=== PATIENT | female | born 1940 | race Caucasian/White ===

== ENCOUNTER → 2019-07-26 | Outpatient (CLI) | payer OTHER, MEDICARE ==
[~2019-07-26] MED LIST: ASA81BEC PO; CLONIDINE HCL0.2 M2 PO; LOPRESSOR50 MG PO; PAXIL40 MG PO; PRIMIDONE50 MG PO; ULTRAM50 MG PO; XANAX1 MG PO; ZANAFLEX4 M2 PO; ZESTRIL40 MG PO
--- NOTE | 2019-07-26 12:45 | 2DMMODE ---
[facility] [place] [place] [address] 2 D/M-MODE ECHOCARDIOGRAM Name: JOSE A SURESH Room #: REG [facility]#: [id number] Admission: 07/26/19 Attend Phys: Navid Hernandez Discharge: Date of : 40 Report #: [id number] THIS REPORT FOR: //name// APPROVED REPORT Study performed: 07/26/2019 11:11:18 EXAM: Comprehensive 2D, Doppler, and color-flow Echocardiogram Patient Location: Out-Patient Status: routine BSA: 1.77 HR: 74 bpm BP: 140/86 mmHg Rhythm: NSR Other Information Study Quality: Adequate/COPD Indications Hypertension, COPD. 2D Dimensions RVDd: 30.77 mm IVSd: 12.11 (7-11mm) LVOT Diam: 20.33 (18-24mm) LVDd: 43.39 mm PWd: 12.00 (7-11mm) LVDs: 30.20 (25-40mm) Aortic Root: 34.70 mm Volumes Left Atrial Volume (Systole) Single Plane 4CH: 57.25 mL Single Plane 2CH: 60.70 mL LA ESV Index: 35.00 mL/m2 Aortic Valve AoV Peak Tylor.: 1.43 m/s AO Peak Gr.: 8.22 mmHg LVOT Max P.79 mmHg LVOT Max V: 0.97 m/s LAURENT Vmax: 2.20 cm2 Mitral Valve E/A Ratio: 0.8 MV Decel. Time: 196.95 ms MV E Max Tylor.: 0.88 m/s [facility] [address] [place] [address] 2 D/M-MODE ECHOCARDIOGRAM Name: JOSE A SURESH Room #: REG [facility]#: [id number] Admission: 07/26/19 Attend Phys: Navid Hernandez Discharge: Date of : 40 Report #: [id number] MV A Tylor.: 1.07 m/s MV PHT: 57.11 ms IVRT: 110.73 ms Pulmonary Valve PV Peak Tylor.: 1.13 m/s PV Peak Gr.: 5.09 mmHg Tricuspid Valve TR Peak Tylor.: 2.71 m/s RAP Estimate: 10.00 mmHg TR Peak Gr.: 29.46 mmHg PA Pressure: 39.00 mmHg Left Ventricle The left ventricle is normal size. There is normal LV segmental wall motion. Mild concentric left ventricular hypertrophy. Left ventricular systolic function is normal. LVEF is 55-60%. Mild diastolic dysfunction is present (impaired relaxation pattern). Right Ventricle The right ventricle is normal size. The right ventricular systolic function is normal. Atria Left atrium is mildly dilated. The right atrium size is normal. Aortic Valve The aortic valve is normal in structure. No aortic regurgitation is present. There is no aortic valvular stenosis. Mitral Valve The mitral valve is normal in structure. Moderate to severe mitral regurgitation Tricuspid Valve The tricuspid valve is normal in structure. Trace to mild tricuspid regurgitation. Estimated PAP is 35-40mmHg. Pulmonic Valve Pulmonic valve leaflets are thickened. Trace pulmonic regurgitation. Great Vessels The aortic root is normal in size. Ascending aorta is not well visualized. IVC is dilated and collapses >50% with [facility] [address] [place] [address] 2 D/M-MODE ECHOCARDIOGRAM Name: JOSE A SURESH Room #: [facility]#: [id number] Admission: 07/26/19 Attend Phys: Navid Hernandez Discharge: Date of : 40 Report #: [id number]. Pericardium There is no pericardial effusion. <Conclusion> The left ventricle is normal size. LVEF is 55-60%. Left atrium is mildly dilated. The aortic valve is normal in structure. The mitral valve is normal in structure. Moderate to severe mitral regurgitation The tricuspid valve is normal in structure. Trace to mild tricuspid regurgitation. Estimated PAP is 35-40mmHg. Pulmonic valve leaflets are thickened. Trace pulmonic regurgitation. There is no pericardial effusion. <ELECTRONICALLY SIGNED> By: Navid Dueñas MD 07/26/19 1244 1244 1244 Navid Dueñas MD /INF
== END ==
LOC: CV 07-10 12:03
DX: I08.1 Rheumatic disorders of both mitral and tricuspid valves (principal); I11.9 Hypertensive heart disease without heart failure; J44.9 Chronic obstructive pulmonary disease, unspecified; E78.5 Hyperlipidemia, unspecified; Z79.899 Other long term (current) drug therapy; Z87.891 Personal history of nicotine dependence

== ENCOUNTER → 2019-08-07 | Outpatient (CLI) | payer OTHER, MEDICARE | LOC: SJCVC 13:52 | DX: R06.09 Other forms of dyspnea (principal); R94.39 Abnormal result of other cardiovascular function study; I10 Essential (primary) hypertension; E78.5 Hyperlipidemia, unspecified; J44.9 Chronic obstructive pulmonary disease, unspecified; Z79.82 Long term (current) use of aspirin; Z79.899 Other long term (current) drug therapy; Z82.49 Family history of ischemic heart disease and other diseases of the circulatory system; Z87.891 Personal history of nicotine dependence ==

== ENCOUNTER → 2019-08-14 | Outpatient (CLI) | payer OTHER, MEDICARE ==
[~2019-08-14] VITALS: Ht 165.1 cm; Wt 70.3 kg
[2019-08-14 10:54] LABS: ABSOLUTE NEUTROPHILS 3.9 thou/uL (1.4-8.2); BASOPHILS 0.9 % (0.0-2.0); EOSINOPHILS 1.6 % (0.0-3.0); HEMATOCRIT 46.8 % (37.0-47.0); HEMOGLOBIN 15.6 gm/dL (12.0-15.0); LYMPHOCYTES 26.9 % (24.0-44.0); MCH 34.5 pg (26.0-34.0); MCHC 33.4 g/dL (28.0-37.0); MCV 103.4 fL (80.0-100.0); MONOCYTES 6.4 % (1.0-8.0); PLATELET COUNT 229 thou/uL (150-400); POLYS 64.2 % (36.0-66.0); RBC 4.52 mil/uL (4.20-5.00); RDW 14.1 % (10.5-14.5); WBC 6.1 thou/uL (4.0-11.0)
[2019-08-14 11:03] LABS: CALCIUM 9.8 mg/dL (8.5-10.1); CREATININE 0.7 mg/dL (0.6-1.0); POTASSIUM 3.9 mmol/L (3.5-5.1)
[2019-08-14 11:07] VITALS: BP 145/78
--- NOTE | 2019-08-14 16:40 | EKG ---
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 GAMBLE : 1940 Requested By: Navdi Dueñas Order Number: [id number] MD: Zaid Marshall Measurements Intervals [place] Rate: 63 P: 78 ND: 210 QRS: 36 QRSD: 95 T: 26 QT: 424 QTc: 435 Interpretive Statements Sinus rhythm Abnormal inferior Q waves No previous ECG available for comparison Electronically Signed On 08-14-2019 16:39:33 ASSISTED LIVING HOUSEKEEPER by Zaid Marshall [email or web address] <ELECTRONICALLY SIGNED> By: Zaid Marshall MD, [facility] 08/14/19 1639 1131 30 Zaid Marshall MD, FAC /EPI
--- NOTE | 2019-08-21 11:20 | CATHLAB ---
[facility] [place] [address] INVASIVE PROCEDURE REPORT Name: JOSE A SURESH Room #: REG GALI [facility]#: [id number] Admission: 08/14/19 Attend Phys: Navid Dueñas Discharge: Date of : 40 Report #: [id number] THIS REPORT FOR: cc: Placido Zuleta Andrea RNP Lammoglia, Francisco J. MD ~ APPROVED REPORT Study performed: 08/14/2019 11:11:54 Patient Details Patient Status: Out-Patient Room #: The patient is a 78 year-old female Event Personnel Navid Dueñas Simulation Tech, Jaime Ross Trubic, Lauren RN RN, Nelly Montaño Monitor Procedures Performed Art Access - L femoral artery* Art Access - R femoral artery* 94676 Initial Mod Sed Same Phys/QHP Gr5y 079476 44816 Mod Sed Same Phys/QHP Ea 475104 Left Heart Cath w/or w/o Coronaries [id number] [facility] Hemostasis with Manual pressure,right iliacangiography, supervision of conscious sedation Indication Positive stress test, Chest pain Procedure Narrative The patient was brought electively to the Cardiac Catheterization Laboratory and was prepped and draped in a sterile manner. The Right Groin^ was infiltrated with 1% Lidocaine subcutaneous anesthesia. A PINNACLE 4FR Sheath #[id number] sheath was inserted into the LFA^. Coronary angiography was performed using coronary diagnostic catheters. The left coronary system was accessed and visualized with a JL 4 catheter. The left ventricle was accessed and visualized with a JR 4 catheter. Left ventricular/Aortic Valve gradient assessed via catheter pullback. Hemostasis was obtained with manual pressure following sheath removal without any complications. The patient tolerated the procedure well and there were no complications associated with the procedure. There was no hematoma. Intraoperative Conscious Sedation Sedation start time: 13:55 Case end Time: [facility] [place] [address] INVASIVE PROCEDURE REPORT Name: JOSE A SURESH [facility] #: [facility] [id number] Admission: 08/14/19 Attend Phys: Navid Hernandez Discharge: Date of : 40 Report #: [id number] 14:38 Versed 3 mg Fluoro Time: 6.60 minutes Dose: DAP 6756.00 cGycm2 1056 mGy Contrast Type and Amount: Omnipaque 60 ml Coronary Angiography The patient's coronary anatomy is right dominant. Diagnostic Cath Left Main moderate caliber vessel of normal origin with heavy calcifications noted on fluoroscopy bifurcates left anterior descending left circumflex has irregularities noted but no high-grade lesion LAD moderate caliber type II vessel with heavy calcification throughout its entire course. There is moderate lesions proximally but in its midportion is an eccentric heavily calcified lesion of at least 80% noted. It continues giving rise to septal and diagonal branches as it courses in the anterior interventricular sulcus.the origin of the first diagonal branch is a eccentric lesion which is at least 60% noted on one view Diagonal 1 small caliber heavily calcified vessel coursing the anterolateral wall with moderate proximal disease and diffuse disease throughout Circumflex a nondominant vessel which has a high-grade proximal lesion before it bifurcates into to lateral wall marginal branches which have luminal irregularities as it courses along the lateral aspect of the ventricle. OM1 multiple moderate caliber heavily calcified vessel with irregularities which are luminal but no high-grade lesions be on the original one in the circumflex proper Right Coronary totally occluded moderate caliber vessel at its origin. His heavy calcifications noted throughout the entire course of the vessel. Via [id number]-[id number]-[id number] collateralization a posterior lateral branch and a posterior descending artery are noted which appear to be small and diffusely diseased. Left Ventriculography Left Ventriculography was not performed. Hemodynamics The aortic pressure is 211/92 mmHg with a mean of 135 mmHg. The left ventricular pressure is 200/3 mmHg with a mean of mmHg. The left ventricular end diastolic pressure is 20 mmHg. [facility] [address] [place] [address] INVASIVE PROCEDURE REPORT Name: JOSE A SURESH Room #: REG [facility] [id number] Admission: 08/14/19 Attend Phys: Navid Hernandez Discharge: Date of : 40 Report #: [id number] Conclusion 1. Coronary artery disease three-vessel with high grade LAD and RCA disease encompassing mid LAD lesion and a total occluded proximal RCA with collateralization from [id number]-hvhjm. 2. Heavily calcified epicardial coronary arteries throughout the majority other length 3. Abnormal urinalysis elevated 11 end-diastolic pressures Recommendations CABG <ELECTRONICALLY SIGNED> By: Navid Dueñas MD 08/21/19 1118 1118 1118 Navid Dueñas MD /INF
== END | disposition home or self-care (01) ==
LOC: CATH 10:21
PROVIDERS: Internal Medicine
DX: R07.9 Chest pain, unspecified (principal); R94.39 Abnormal result of other cardiovascular function study; I25.10 Atherosclerotic heart disease of native coronary artery without angina pectoris; I25.84 Coronary atherosclerosis due to calcified coronary lesion; I11.0 Hypertensive heart disease with heart failure; I50.30 Unspecified diastolic (congestive) heart failure; E78.5 Hyperlipidemia, unspecified; J44.9 Chronic obstructive pulmonary disease, unspecified; F17.210 Nicotine dependence, cigarettes, uncomplicated; Z98.890 Other specified postprocedural states; Z79.899 Other long term (current) drug therapy; Z79.82 Long term (current) use of aspirin; Z88.0 Allergy status to penicillin

== ENCOUNTER → 2019-08-29 | Outpatient (CLI) | payer OTHER, MEDICARE ==
--- NOTE | ~2019-08-29 | PFR/MVV ---
[facility] [place] [address] PULMONARY FUNCTION MVV/REPORT Name: JOSE A SURESH [id number] Admission: 08/29/19 Attend Phys: Nik Malloy MD Discharge: Date of : 40 Report #: [id number] THIS REPORT FOR: //name// >> SPIROMETRY: (BTPS) Height: in cm Weight: lbs kg Exam Date: PRE-RX POST-RX PRED BEST %PRED BEST %PRED %CHG FVC LITERS . . . . . . FEV1 LITERS . . . . . . FEV1/FVC % . . . . . . UJH31-75% L/Sec . . . . . . PEF L/SEC . . . . . . FEF50/FIF50 UNITLESS . . . . . . MVV L/Min . . . f 1/Min . . . >> LUNG VOLUMES: (BTPS) PRE-RX POST-RX PRED AVG %PRED AVG %PRED %CHG VC Liters . . . . . . TLC Liters . . . . . . RV Liters . . . . . . RV/TLC % . . . . . . FRC PL Liters . . . . . . FRC N2 Liters . . . . . . ERV Liters . . . . . . IC Liters . . . . . . >> DIFFUSION: DLCO ml/Min/mmHg . . . . . . DL Sally ml/Min/mmHg . . . . . . DLCO/VA ml/Min/mmHg . . . . . . VA Liters . . . . . . COMMENTS: COMMENTS: >> RESISTANCE: [facility] [address] [place] [address] PULMONARY FUNCTION MVV/REPORT Name: JOSE A SURESH Room #: REG GALI [facility]ourJessica#: [id number] Admission: 08/29/19 Attend Phys: Nik Malloy MD Discharge: Date of : 40 Report #: [id number] PRE-RX PRED AVG %PRED Raw Total cmH20/L/Sec . . . Raw Insp cmH20/L/Sec . . . Raw Exp cmH20/L/Sec . . . Raw cmH20/L/Sec . . . Gaw L/Sec/cmH20 . . . sRaw cmH20 Sec . . . sGaw l/cmH20 Sec . . . Vtq Liters . . . # = OUTSIDE 95% CONFIDENCE INTERVAL CALIBRATION: PRED: 3.00 ACTUAL: EXP 3.01 INSP 3.02 [facility]-OL10- [facility]-- N-1804-4 >> INTERPRETATION/IMPRESSION: CC: Placido Malloy DATE OF SERVICE: 08/29/2019 SPIROMETRY: FEV1 is 1.14 liters (60%), FVC is 2.58 liters (94%), FEV1/FVC ratio is 44%. Post-bronchodilator therapy with no appreciated response. LUNG VOLUMES: Total lung capacity is 5.99 liters (121%). RV is 3.41 liters (163%). Diffusing capacity is 81%. IMPRESSION: Pulmonary function studies are consistent with a moderate obstructive airflow defect with no significant response to bronchodilator therapy. There is mild air trapping and hyperinflation. Diffusing capacity is normal. By: Mayito Avery MD /nt
== END ==
LOC: PULREHAB 09:17 → PUL 11:02 → EDSTATUS 11:02 → PULREHAB 15:27
DX: R94.2 Abnormal results of pulmonary function studies (principal); Z79.899 Other long term (current) drug therapy

== ENCOUNTER 2020-01-30 06:37 | Inpatient (IN) | payer OTHER, MEDICARE ==
[~2020-01-30] VITALS: Ht 152.4 cm; Wt 75.2 kg
[~2020-01-30 06:37] MED LIST changes: -LOPRESSOR50 MG PO; +TOPROL XL50 MG PO
[2020-01-30 06:48] VITALS: BP 216/100
[2020-01-30 07:27] LABS: BE(vivo) -3.1 mmol/L (-2 to +3); HCO3 27.2 mmol/L (22.0-26.0); PCO2 72.7 mmHg (35.0-45.0); PO2 63.8 mmHg (80.0-100.0); pH 7.191 (7.360-7.450); sO2 86.3 % (92.0-98.0)
[2020-01-30 07:50] LABS: ABSOLUTE NEUTROPHILS 9.4 thou/uL (1.4-8.2); BASOPHILS 0.6 % (0.0-2.0); EOSINOPHILS 0.6 % (0.0-3.0); HEMATOCRIT 44.3 % (37.0-47.0); LYMPHOCYTES 9.2 % (24.0-44.0); MCH 35.5 pg (26.0-34.0); MCV 104.6 fL (80.0-100.0); MONOCYTES 4.8 % (1.0-8.0); PLATELET COUNT 216 thou/uL (150-400); POLYS 84.8 % (36.0-66.0); RBC 4.24 mil/uL (4.20-5.00); RDW 13.5 % (10.5-14.5); WBC 11.1 thou/uL (4.0-11.0)
[2020-01-30 08:04] LABS: CALCIUM 8.6 mg/dL (8.5-10.1); CREATININE 0.7 mg/dL (0.6-1.0)
[2020-01-30 08:13] LABS: ALBUMIN 3.5 g/dL (3.4-5.0); MAGNESIUM 1.6 mg/dL (1.8-2.4); TOTAL BILIRUBIN 0.5 mg/dL (0.2-1.0); TOTAL PROTEIN 7.1 g/dL (6.4-8.2); TROPONIN-I 0.08 ng/mL (<0.06)
[2020-01-30 12:28] LABS: BE(vivo) -0.2 mmol/L (-2 to +3); HCO3 26.2 mmol/L (22.0-26.0); PCO2 49.6 mmHg (35.0-45.0); PO2 81.7 mmHg (80.0-100.0); pH 7.341 (7.360-7.450); sO2 95.3 % (92.0-98.0)
[2020-01-30] MEDS ORDERED: CLOPIDOGREL75 MG PO (16:39)
--- NOTE | 2020-01-30 17:40 | NUR ---
Dr. Schulz paged at this time. This RN attempts to notify Zeus that patient needs plavix ordered and clonidine d/c'd
[2020-01-30 17:42] VITALS: BP 146/67
[2020-01-30 18:40] VITALS: BP 113/59
--- NOTE | 2020-01-30 19:27 | NUR ---
PT CARE ASSUMED APPROX 1830. PT ALERT AND ORIENTED. DENIES PAIN AND SOA. RESUMED 2LNC. PT RESTING CALMY WITHOUT ISSUE. ADMISSION TASKS AND POC REPORTED OFF TO ONCOMING SHIFT. RECEIVING NURSE DENIES QUESTIONS OR CONCERNS REGARDING POC. NO DISTRESS NOTED.
[2020-01-30 22:53] VITALS: BP 130/64
--- NOTE | 2020-01-31 00:07 | NUR ---
1900 ASSUMED CARE OF PT AFTER REPORT. 1999 DR MORENO NOTIFIED OF NEGATIVE COVID TEST. 2199 ADMISSION ASSESSMENT COMPLETED, PT RESP UNLABORED WITH COARSE RHONCHI CLEARS WITH COUGH, WHEEZES IN BILAT UPPER LOBES, 2L NC O2, DYSPNEA WITH EXHERTION. PT UP TO BEDSIDE COMMODE WITH ASSIST, FALL PRECAUTIONS IN PLACE. WILL CONTINUE TO MONITOR
[2020-01-31 01:06] LABS: GLYCOHEMOGLOBIN (HGB A1C) 5.3 % (4.8-5.6)
[2020-01-31 02:37] LABS: ABSOLUTE NEUTROPHILS 8.9 thou/uL (1.4-8.2); BASOPHILS 0.1 % (0.0-2.0); HEMATOCRIT 38.6 % (37.0-47.0); HEMOGLOBIN 12.9 gm/dL (12.0-15.0); LYMPHOCYTES 5.8 % (24.0-44.0); MCH 34.8 pg (26.0-34.0); MCHC 33.4 g/dL (28.0-37.0); MCV 104.1 fL (80.0-100.0); MONOCYTES 2.7 % (1.0-8.0); PLATELET COUNT 174 thou/uL (150-400); POLYS 91.4 % (36.0-66.0); RBC 3.71 mil/uL (4.20-5.00); WBC 9.7 thou/uL (4.0-11.0)
[2020-01-31 02:38] LABS: CALCIUM 8.6 mg/dL (8.5-10.1); CREATININE 0.7 mg/dL (0.6-1.0)
[2020-01-31 02:39] LABS: MAGNESIUM 1.8 mg/dL (1.8-2.4)
[2020-01-31 04:46] VITALS: BP 135/69
[2020-01-31 07:55] VITALS: BP 140/66
--- NOTE | 2020-01-31 09:11 | EKG ---
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1940 Requested By: Austen Faulkner Order Number: [id number] MD: Zaid Marshall Measurements Intervals [place] Rate: 83 P: 76 MT: 209 QRS: -48 QRSD: 150 T: 104 QT: 434 QTc: 510 Interpretive Statements Sinus rhythm Left bundle branch block Baseline wander in lead(s) II,III,aVF Compared to ECG 08/14/2019 11:31:32 Left bundle-branch block now present [place] is shifted leftward Electronically Signed On 01-31-2020 9:10:48 CDT by Zaid Marshall [email or web address] <ELECTRONICALLY SIGNED> By: Zaid Marshall MD, FAC 01/31/20 0910 1110 1110 Zaid Marshall MD, FAC /EPI
--- NOTE | 2020-01-31 11:11 | 2DMMODE ---
[facility] [place] [address] 2 D/M-MODE ECHOCARDIOGRAM Name: JOSE A SURESH Room #: 355-P ADM IN M.R.#: [id number] Admission: 01/30/20 Attend Phys: Amanda Schulz MD Discharge: Date of : 40 Report #: [id number] THIS REPORT FOR: cc: FAM - Family physician unknown FAM - Family physician unknown Navid Dueñas MD ~ APPROVED REPORT Study performed: 01/31/2020 10:22:37 EXAM: Comprehensive 2D, Doppler, and color-flow Echocardiogram Patient Location: Bedside Room #: [facility] Status: routine BSA: 1.81 HR: 90 bpm BP: 140/66 mmHg Other Information Study Quality: Adequate/Patient in COVID isolation. Indications Elevated troponin, respiratory failure. Hx: CAD, COPD, cancer. 2D Dimensions IVSd: 12.28 (7-11mm) LVOT Diam: 19.32 (18-24mm) LVDd: 41.67 mm PWd: 11.84 (7-11mm) LVDs: 30.17 (25-40mm) Aortic Root: 29.86 mm Aortic Valve AoV Peak Tylor.: 1.49 m/s AO Peak Gr.: 8.82 mmHg LVOT Max P.59 mmHg LVOT Max V: 0.95 m/s LAURENT Vmax: 1.87 cm2 Pulmonary Valve PV Peak Tylor.: 1.00 m/s PV Peak Gr.: 3.99 mmHg Tricuspid Valve TR Peak Tylor.: 3.60 m/s RAP Estimate: 10.00 mmHg [facility] [address] [place] [address] 2 D/M-MODE ECHOCARDIOGRAM Name: JOSE A SURESH Room #: 355-P ADM IN M.R.#: [id number] Admission: 01/30/20 Attend Phys: Minor Robins Discharge: Date of : 40 Report #: [id number] TR Peak Gr.: 52.00 mmHg PA Pressure: 62.00 mmHg Left Ventricle The left ventricle is normal size. There is normal LV segmental wall motion. Mild concentric left ventricular hypertrophy. Left ventricular systolic function is normal. LVEF is 55-60%. This study is not technically sufficient to allow evaluation of the LV diastolic function. Right Ventricle The right ventricle is normal size. The right ventricular systolic function is normal. Atria Left atrium is dilated. The right atrium size is normal. Aortic Valve The aortic valve is normal in structure. No aortic regurgitation is present. There is no aortic valvular stenosis. Mitral Valve Mitral valve leaflets are thickened and calcified. Severe mitral regurgitation. No evidence of mitral valve stenosis. Tricuspid Valve The tricuspid valve is normal in structure. Mild tricuspid regurgitation. Estimated PAP is 60-65mmHg. Pulmonic Valve Pulmonic valve is not well visualized. Great Vessels The aortic root is normal in size. IVC is dilated and collapses >50% with inspiration. Pericardium There is no pericardial effusion. <Conclusion> The left ventricle is normal size. LVEF is 55-60%. Left atrium is dilated. The aortic valve is normal in structure. Mitral valve leaflets are thickened and calcified. Severe mitral regurgitation. [facility] [address] [place] [address] 2 D/M-MODE ECHOCARDIOGRAM Name: JOSE A SURESH Room #: 355-P ADM IN M.R.#: [id number] Admission: 01/30/20 Attend Phys: Minor Robins Discharge: Date of : 40 Report #: [id number] The tricuspid valve is normal in structure. Mild tricuspid regurgitation. Estimated PAP is 60-65mmHg. Pulmonic valve is not well visualized. There is no pericardial effusion. <ELECTRONICALLY SIGNED> By: Navid Dueñas MD 01/31/20 1111 1111 1111 Navid Dueñas MD /INF
--- NOTE | 2020-01-31 14:25 | NUR ---
AAOX4. CALM, PLEASANT. SR WITH BBB PER TELE. DIURESING, BUT STILL REQUIRES OXYGEN. EF 55-60% NOTED. FALL PRECAUTIONS IN PLACE. UP TO BSC OR BR WITH ASSIST. STRICT I&O. WILL CONTINUE TO FOLLOW CLOSELY.
[2020-01-31 16:27] VITALS: BP 145/53
[2020-01-31 21:41] VITALS: BP 139/71
[2020-02-01 00:52] VITALS: BP 145/76
--- NOTE | 2020-02-01 00:57 | NUR ---
1900 ASSUMED CARE OF PT AFTER REPORT. 1999 BASELINE ASSESSMENT COMPLETED, PT CALLS FOR COMMODE, FALL PRECAUTIONS IN PLACE. NO IV FLUIDS RUNNING, HEPARIN HELD AFTER NOTIFYING YASMIN PARRA OF ASPIRIN AND PLAVIX ORDERED, BRUISING AND SEEPING AROIUND IV. 0030 ALERTED TO ICREASE IN HR AND SOA BY RESP THERAPY. BREATHING TREATMENT IN PLACE FOLLOWING UP TO RESTROOM. PT APPEARS VERY ANXIOUS, LUNGS SOUND UNCHANGED FROM PREVIOUS ASSESSMENT, XANAX GIVEN PER AUG FOR ANXIETY, PT CALMS JUST WITH CONVERSATION, AND RESPIRATIONS HAVE EASED HR WNL AND PT APPEARS MUCH CALMER. WILL ONTINUE TO MONITOR
[2020-02-01 06:30] VITALS: BP 123/67
[2020-02-01 11:54] VITALS: BP 145/75
[2020-02-01] MEDS ORDERED: LIPITOR40 MG PO (12:49)
[2020-02-01] MEDS ORDERED: IPRAT-ALBUT 0.5-3 ML INH (12:49)
[2020-02-01] MEDS ORDERED: CEFDINIR300 MG PO (12:49)
[2020-02-01] MEDS ORDERED: LASIX 40 MG TAB40 M1 PO (12:49)
[2020-02-01] MEDS ORDERED: PROTONIX40 M1 PO (12:49)
[2020-02-01] MEDS ORDERED: PREDNISONE 20 M20 MG PO (12:49)
[2020-02-01] MEDS ORDERED: PULMICORT0.5 MG/21 INH (12:49)
[2020-02-01] MEDS ORDERED: AZITHROMYCIN500 MG PO (12:49)
--- NOTE | 2020-02-01 14:52 | NUR ---
PT OF ISOLATION AND WILL BE TRANSFERED TO CCU. REPORT GIVEN TO ALINA SHAH.
[2020-02-01 15:30] VITALS: BP 147/87
--- NOTE | 2020-02-01 17:32 | NUR ---
PATIENT ARRIVED FROM 3W WEST VIA, ALERT AND ORIENTED X4, AND PLEASANT. VSS AND SR ON THE MONITOR. DENIES ANY DISCOMFORT, AND WILL CONTINUE WITH POC.
[2020-02-01 20:44] VITALS: BP 127/66
[2020-02-02 04:50] VITALS: BP 104/74
[2020-02-02 06:01] LABS: CREATININE 0.7 mg/dL (0.6-1.0); POTASSIUM 3.5 mmol/L (3.5-5.1)
[2020-02-02 08:09] VITALS: BP 142/74
[2020-02-02 11:36] VITALS: BP 118/69
[2020-02-02 16:59] VITALS: BP 120/79
--- NOTE | 2020-02-02 17:19 | NUR ---
ASSUMED CARE AT SHIFT CHANGE, VSS AND AFEBRILE, ASSESSMENT CHARTED AND DENIES ANY DISCOMFORT. VOICES HER NEEDS AND WILL CONTINUE WITH POC.
[2020-02-02 19:29] VITALS: BP 134/82
[2020-02-03] VITALS (8 sets, daily range): BP systolic 127–1236; BP diastolic 58–75
--- NOTE | 2020-02-03 05:48 | NUR ---
PATIENT IS ADVANCING IN HER CARE PLAN. VITAL SIGNS STABLE WITH PATIENT HAVING NO COMPLAINTS OF PAIN OR NAUSEA. BREATHING STABLE ON OXYGEN EVIDENCED BY ASSESSMENT AND SPOT OXYGENATION CHECKS. PATIENT HAS BEEN ABLE TO AMBULATE FREELY AROUND THE ROOM THROUGHOUT SHIFT INCIDENT FREE. POTENTIAL DISCHARGE TODAY. CONTINUE PLAN OF CARE.
--- NOTE | 2020-02-03 11:24 | NUR ---
PT. WANT TO EXPLORE HEART VALVE REPLACEMENT. SHE SHARED SHE REGRETS NOT CONSIDERING IT INITIALLY, BUT REALLY WANTS TO EXPLORE IT. I PASSED THIS ON TO HER NURSE,
--- NOTE | 2020-02-03 11:41 | NUR ---
INITIAL ASSESSMENT: ALISTAIR reviewed chart and spoke with attending physician. Pt was admitted from home due to COPD exacerbation/acute respiratory failure. Pt was placed in Enhanced Isolation to r/o COVID-19. Pt had negative COVID test and transferred to from . Pt is progressing towards goals for discharge. Rest/exercise oximetry completed on 01/31 showed pt needs 2L at rest and 3L with activity. Will need new rest/exercise oximetry today. Pt is on IV abx. ALISTAIR spoke with pt via cell phone ([phone]). Introduced role of SW. Pt is alert/orientated x 4. Pt reports she lives alone in a ground level apt. No stairs to navigate. Prior to admission, pt was not using any DME. No hx of HH services or post-acute placement. Pt sees Placido Zuleta NP with [facility]. Pt states she would like to speak with cardiology prior to discharge to discuss CTS consult: inpt v. outpt. Pt will then decide if she will consider post-acute placement v. home with HH. ALISTAIR updated attending physician. Awaiting PT eval at this time. ALISTAIR is following to assist as needed with discharge planning.
[2020-02-03] MEDS ORDERED: IPRAT-ALBUT 0.5-3 ML NEB (15:30)
--- NOTE | 2020-02-03 20:51 | NUR ---
PT CARE ASSUMED AT 0700. ASSESSMENT CHARTED. MEDICATIONS CHARTED. RT REST AND EXERCISE SATURATION PERFORMED. PT DISCHARGED TO HOME. TELEMETRY D/C'D. IV D/C'D. PRECRIPTIONS GIVEN TO PT PRIOR TO DISCHARGE.
--- NOTE | 2020-02-04 11:08 | NUR ---
ALISTAIR reviewed chart. Pt was discharged home last evening after RT completed rest/exercise oximetry. Pt requires 2L with activity. [facility] delivered portable O2 tank to pt's room last evening prior to discharge. ALISTAIR faxed rest/exercise oximetry and script to [facility]. ALISTAIR notified Harinder Yoon liaison and Kandis, in the [facility] office. ALISTAIR faxed finalized discharge orders/summary to [facility] and notified liaison. No additional SW needs identified at this time, but is available to assist should needs arise.
== END 2020-02-03 20:35 | disposition home health service (06) | DRG 280 ==
LOC: ER 06:37 → 2N 10:40 → 3W 10:40 → EROBS 10:40 → 3W 18:25 → 2N 02-01 15:30
PROVIDERS: Emergency Medicine; Nurse Practitioner; ADMIT Hospitalist; ATTEND Hospitalist
DX: I11.0 Hypertensive heart disease with heart failure (principal); I21.A1 Myocardial infarction type 2; J18.9 Pneumonia, unspecified organism; J96.22 Acute and chronic respiratory failure with hypercapnia; J96.21 Acute and chronic respiratory failure with hypoxia; R65.11 Systemic inflammatory response syndrome (SIRS) of non-infectious origin with acute organ dysfunction; J44.1 Chronic obstructive pulmonary disease with (acute) exacerbation; I50.33 Acute on chronic diastolic (congestive) heart failure; I16.0 Hypertensive urgency; E78.5 Hyperlipidemia, unspecified; I25.10 Atherosclerotic heart disease of native coronary artery without angina pectoris; E83.42 Hypomagnesemia; D50.9 Iron deficiency anemia, unspecified; R73.9 Hyperglycemia, unspecified; F17.210 Nicotine dependence, cigarettes, uncomplicated; I73.9 Peripheral vascular disease, unspecified; Z60.2 Problems related to living alone; I08.1 Rheumatic disorders of both mitral and tricuspid valves; Z88.0 Allergy status to penicillin; Z85.3 Personal history of malignant neoplasm of breast; Z71.6 Tobacco abuse counseling; Z79.82 Long term (current) use of aspirin; Z79.899 Other long term (current) drug therapy; Z03.818 Encounter for observation for suspected exposure to other biological agents ruled out
CPT/HCPCS: 10081; 10879

== ENCOUNTER 2020-03-15 10:01 | Inpatient (IN) | payer OTHER, MEDICARE ==
[~2020-03-15] VITALS: Ht 170.2 cm; Wt 73.5 kg
[~2020-03-15 10:01] MED LIST changes: +AZITHROMYCIN500 MG PO; +CEFDINIR300 MG PO; +CLOPIDOGREL75 MG PO; +IPRAT-ALBUT 0.5-3 ML INH; +IPRAT-ALBUT 0.5-3 ML NEB; +LASIX 40 MG TAB40 M1 PO; +LIPITOR40 MG PO; +PREDNISONE 20 M20 MG PO; +PROTONIX40 M1 PO; +PULMICORT0.5 MG/21 INH
[2020-03-15 10:08] VITALS: BP 172/65
[2020-03-15 11:54] LABS: ABSOLUTE NEUTROPHILS 6.7 thou/uL (1.4-8.2); BASOPHILS 0.6 % (0.0-2.0); EOSINOPHILS 0.6 % (0.0-3.0); HEMOGLOBIN 10.3 gm/dL (12.0-15.0); LYMPHOCYTES 8.2 % (24.0-44.0); MCH 34.6 pg (26.0-34.0); MCHC 33.4 g/dL (28.0-37.0); MCV 103.6 fL (80.0-100.0); MONOCYTES 6.4 % (1.0-8.0); PLATELET COUNT 224 thou/uL (150-400); POLYS 84.2 % (36.0-66.0); RBC 2.99 mil/uL (4.20-5.00)
[2020-03-15 11:59] LABS: CREATININE 0.5 mg/dL (0.6-1.0); POTASSIUM 3.2 mmol/L (3.5-5.1)
[2020-03-15 12:09] LABS: ALBUMIN 3.3 g/dL (3.4-5.0); DIRECT BILIRUBIN 0.1 mg/dL (<0.1-0.2); TOTAL BILIRUBIN 0.5 mg/dL (0.2-1.0); TOTAL PROTEIN 7.1 g/dL (6.4-8.2); TROPONIN-I 0.07 ng/mL (<0.06)
--- NOTE | 2020-03-15 18:26 | NUR ---
CALLED ADMITTING DOCTOR TO GET HOME MEDICATIONS PUT ON EMAR
[2020-03-15 20:29] VITALS: BP 165/92
[2020-03-15 20:50] VITALS: BP 163/20
[2020-03-15 21:00] VITALS: BP 152/70
[2020-03-16] VITALS: BP 164/84
--- NOTE | 2020-03-16 04:12 | NUR ---
RECIEVED PT FROM ED , UPON ARRIVAL TO UNIT AND ROOM DISCUSSED POC CARE ASSESSMENT COMPLETED VERBALIZED UNDERSTANDING AND AGREEABLE. TRIMMING CUTTER SHOWS NSR - ST WITH BBB. RESTED WELL THROUGHOUT HOURLY ROUNDS, WILL CONINITUE WITH CURRENT PLAN OF CARE AND WILL REPORT CHANGES.
[2020-03-16 04:16] VITALS: BP 172/81
[2020-03-16 08:00] VITALS: BP 147/80
--- NOTE | 2020-03-16 11:55 | EKG ---
[facility] [place] [address] ELECTROCARDIOGRAM REPORT Name: JOSE A SURESH Room #: 350-P ADM IN M.R.#: [id number] Admission: 03/15/20 Attend Phys: Con Urias MD Discharge: Date of : 40 Report #: [id number] THIS REPORT FOR: cc: FAM - Family physician unknown FAM - Family physician unknown Donald Silvestre MD [facility] ~ THIS REPORT FOR: //name// [facility] ED Test Date: 2020-03-15 Test Time: 10:44:14 Pat Name: JOSE A SURESH Department: Room: 350 P Gender: F Manager E Learning: JONI : 1940 Requested By: Con Urias Order Number: [id number] MD: Donald Silvestre Measurements Intervals [place] Rate: 93 P: 52 MA: 206 QRS: -13 QRSD: 159 T: 140 QT: 374 QTc: 466 Interpretive Statements Sinus rhythm Probable left atrial enlargement Left bundle branch block Compared to ECG 01/30/2020 11:10:46 No significant changes Electronically Signed On 03-16-2020 11:55:32 CDT by Donald Silvestre [email or web address] <ELECTRONICALLY SIGNED> By: Donald Silvestre MD, [facility] 03/16/20 1155 1044 1044 Donald Silvestre MD, [facility] /EPI
[2020-03-16 12:00] VITALS: BP 119/63
--- NOTE | 2020-03-16 15:37 | NUR ---
INITIAL ASSESSMENT: SW reviewed chart and spoke with attending physician. Pt was admitted from home due to COPD exacerbation/CHF. Pt was placed in Enhanced Isolation to r/o COVID-19. Pt's test is negative. Pt is on IV lasix, IV steroids and IV abx. Pt was recently discharged home for [facility] on 02/02 with [facility] and home O2 through [facility]. SW spoke with pt via phone. Introduced role of SW. Pt is alert/orientated x 4. Pt reports she lives alone in a ground level apt. No stairs to navigate. Prior to admission, pt was not using any DME. No hx of post-acute placement. Pt sees Placido Zuleta NP with [facility]. Pt's HH services have ended. [facility] is able to accept pt back on service if needed. SW is following to assist as needed with discharge planning.
[2020-03-16 16:37] VITALS: BP 140/76
--- NOTE | 2020-03-16 17:21 | NUR ---
RN HAS ASSUMED PT'S CARE AT 0700AM, PT IS A&OX3, PT IS ON O2 2-3L/MIN/NC , PT'S O2SAT KEEPS AT 96-100%, PT'S VS ARE STABLE, PT HAS STARTED IV ABX , PT STILL HAS SOME COUGHING AND SOB WITH ACTIVITIES, PT GETS UP TO BSC, PT DENIES PIAN AT THIS TIME.
--- NOTE | 2020-03-16 17:27 | NUR ---
PT'S COVID TEST WAS NEGATIVE FROM 03/15/20 TEST , DR MORENO HAS ASSESSED PT 'S SITUATION , PT DOES NOT HAVE FEVER , PT'S ISOLATION HAS DC PER ID
[2020-03-16 19:24] VITALS: BP 147/78
[2020-03-17 04:23] VITALS: BP 155/84
[2020-03-17 05:03] LABS: HEMATOCRIT 32.5 % (37.0-47.0); HEMOGLOBIN 10.6 gm/dL (12.0-15.0); MCH 34.4 pg (26.0-34.0); MCHC 32.7 g/dL (28.0-37.0); MCV 105.2 fL (80.0-100.0); RBC 3.09 mil/uL (4.20-5.00); RDW 13.4 % (10.5-14.5); WBC 9.4 thou/uL (4.0-11.0)
[2020-03-17 05:21] LABS: CREATININE 0.6 mg/dL (0.6-1.0); POTASSIUM 3.9 mmol/L (3.5-5.1)
--- NOTE | 2020-03-17 06:35 | NUR ---
ASSUMED CARE AT 1900, ASSESSMENT COMPLETED. PT COOPERATIVE BUT ANXIOUS, GAVE PRN XANAX. REPORTED GENERALIZED PAIN DURING THE NIGHT, GAVE DOSE OF NORCO. REPORTED FEELING SOB AND WHEEZY ON EXPIRATION. PT REPORTS THE ANXIETY IS WORSE WITH SOLUMEDROL, GAVE XANAX AGAIN THIS AM WHEN GIVING SCHEDULED SOLUMEDROL. IV SLIGHTLY LEAKY THIS AM, ATTEMPTED TO PLACE A NEW IV WITHOUT SUCCESS, PLACED A CONSULT TO IV TEAM FOR ASSISTANCE W/ A NEW PIV. NO OTHER CONCERNS, WILL CONTINUE TO MONITOR.
[2020-03-17 07:16] VITALS: BP 148/76
--- NOTE | 2020-03-17 10:41 | NUR ---
SW reviewed chart and spoke with nursing. Enhanced Isolation precautions discontinued. Pt is on IV lasix. PT/OT ordered today to evaluate pt for discharge needs. ALISTAIR is following to assist as needed with discharge planning.
--- NOTE | 2020-03-17 12:02 | NUR ---
VASCULAR ACCESS CONSULTED FOR MIDLINE. PT'S LABS,MEDS, HX REVIEWED. DISCUSSED MIDLINE BENEFITS AND RISK WITH PT,VERBALIZED UNDERSTANDING AND GAVE CONSENT FOR ML. 4FR MIDLINE TRIMMED TO 10CM INSERTED TO 0CM. BRISK BR NOTED. ML RELEASED FOR IMMEDIATE USE PER PROTOCOL TO JALEEL SHAH.
--- NOTE | 2020-03-17 19:40 | NUR ---
RN HAS ASSUMED PT'S CARE AT 0700AM, PT IS A&OX3, PT IS CONTINUING IV ABX, AND O2 2L/MIN/NC, PT'S VS ARE STABLE, PT STILL HAS SOB WITH ACTIVITIES,PT HAS PT/OT WORKING WITH HER, PT WAS OFF COVID ISOLATION AT 03/16/20, PT WILL TRANSFER TO M/S FLOOR SOON,
--- NOTE | 2020-03-17 22:27 | NUR ---
ASSUMED CARE AT 1900, ASSESSMENT COMPLETED AND HS MEDS PASSED. PT REPORTED PAIN IN LEFT LEG, GAVE DOSE NORCO. REPORTED FEELING RESTLESS AND BEING UNABLE TO FALL ASLEEP. LUNG SOUNDS ARE LESS WHEEZY THAN PREVIOUS NIGHT. CALLED REPORT TO [facility] AT 2200, PT TRANSPORTED BY W/C TO ROOM [facility] AT 2230, PT IN STABLE CONDITION AT HAND OFF.
[2020-03-17 22:34] VITALS: BP 148/75
--- NOTE | 2020-03-18 03:58 | NUR ---
ASSUME CARE OF PT FROM 3W AT 2230HRS. PT AOX4 WITH SOME FORGETFULNESS. PT IS UP AD HEMA. O2 AT 2L VIA NC CONTINUED. PT REPORTED PAIN AND ANXIETY, PRNS GIVEN. ASSESSMENT CHARTED. PT DENIES NAUSEA OR SOA. PT RUNNIND SR W/BBB ON TELE. PT REPORTS DIFFICULTY SLEEPING. VSS AND NO S/S OF ACUTE DISTRESS. WILL CONTINUE TO MONITOR.
[2020-03-18 06:57] LABS: CALCIUM 8.7 mg/dL (8.5-10.1); CREATININE 0.6 mg/dL (0.6-1.0)
[2020-03-18 08:00] VITALS: BP 154/98
--- NOTE | 2020-03-18 12:30 | NUR ---
Assumed pt care at 7am.Pt in bed resting without c/o.Assessment completed.vss. Am meds given with breakfast and well tolerated.Pt has frequent urination.Son here to visit,updates given.No soa or verbal c/o at present.Fall bundles in place.Will continue to monitor.
--- NOTE | 2020-03-18 12:43 | NUR ---
FAXED REFERRAL TO [facility] SPOKE WITH MAX IN ADM SHE RECEIVED REFERRAL AND WILL REVIEW. DP TO FOLLOW.
--- NOTE | 2020-03-18 14:32 | NUR ---
CM HAD CALLED AND SPOKEN WITH PT AND SON AT BEDSIDE THIS AM. THEY HAD INDICATED THAT THEY WERE INTERESTED IN POSSIBLE SHORT TERM POST ACUTE CARE STAY UPON DC. THEY EXPRESSED INTEREST IN REFERRAL BEING SENT TO [facility]. REFERRAL SENT. [facility] CAN ACCEPT PT ONCE MEDICALLY STABLE. DR. DUBOIS IS AWARE AND INDICATED THAT PT WILL LIKELY BE MEDICALLY STABLE TO DC TOMORROW. CM NOTIFIED PT AND SON. CM OT FOLLOW INDICATED WITH ANTICPATED DC TO [facility] TOMORROW.
[2020-03-18 16:00] VITALS: BP 141/64
[2020-03-18 20:25] VITALS: BP 139/71
[2020-03-19 07:16] VITALS: BP 147/91
[2020-03-19] MEDS ORDERED: CEFDINIR300 MG PO (07:51)
--- NOTE | 2020-03-19 11:12 | NUR ---
ASSUMED CARE OF PATIENT AT SHIFT CHANGE. ASSESSMENT CHARTED W ASSIST FROM [facility] NURSING STUDENTS AND MEDS GIVEN PER MAR. VSS; PATIENT IS A&OX4 MAKES NEEDS KNOWN. DENIES PAIN, GETS UP INDEPENDENTLY. VOICES ANXIETY, PRN ANXIETY MEDS GIVEN. BREATHING TX ORDERED. PATIENT IS IMPROVING. PROVIDER SAW THIS PATIENT AND AGREED PATIENT IS READY FOR DISCHARGE. PATIENT VOICES NO OTHER NEEDS AT THIS TIME. WILL CONTINUE TO MONITOR.
[2020-03-19 11:46] VITALS: BP 140/52
--- NOTE | 2020-03-19 13:31 | NUR ---
CARE TEAM INDICATED PT MEDICALLY STABLE TO DC TO [facility] THIS DAY. [facility] TRANSPORT ARRANGED FOR 1300. CHART COPY ORDERED. ORDERS FAXED. NURSE CALLED REPORT. PT AND SON ARE AWARE AND AGREEABLE. NO OTHER CM INTERVENTION INDICATED. CASE CLOSED.
--- NOTE | 2020-03-19 19:39 | NUR ---
I AGREE WITH NURSING ASSESSMENT AND NURSING NOTE DONE BY LUDA/BRANCH CREDIT COUNSELOR.
== END 2020-03-19 13:23 | DRG 291 ==
LOC: ER 10:01 → 3W 14:27 → EROBS 14:27 → 3W 20:50 → 4W 03-17 22:31
PROVIDERS: Emergency Medicine; ADMIT Family Medicine; ATTEND Family Medicine
PROC: 05HB33Z Insertion of Infusion Device into Right Basilic Vein, Percutaneous Approach (ICD-10-PCS; principal; 2020-03-17)
DX: I11.0 Hypertensive heart disease with heart failure (principal); J96.20 Acute and chronic respiratory failure, unspecified whether with hypoxia or hypercapnia; J18.9 Pneumonia, unspecified organism; I50.33 Acute on chronic diastolic (congestive) heart failure; E78.5 Hyperlipidemia, unspecified; J43.9 Emphysema, unspecified; I34.0 Nonrheumatic mitral (valve) insufficiency; I48.91 Unspecified atrial fibrillation; R25.1 Tremor, unspecified; Z20.828 Contact with and (suspected) exposure to other viral communicable diseases; I25.10 Atherosclerotic heart disease of native coronary artery without angina pectoris; Z85.3 Personal history of malignant neoplasm of breast; Z86.12 Personal history of poliomyelitis; Z88.0 Allergy status to penicillin; Z79.82 Long term (current) use of aspirin; Z79.899 Other long term (current) drug therapy; Z71.6 Tobacco abuse counseling
CPT/HCPCS: 10045; 10879

== ENCOUNTER 2020-04-12 09:22 | Inpatient (IN) | payer OTHER, MEDICARE ==
[~2020-04-12] VITALS: Ht 165.1 cm; Wt 73.7 kg
[2020-04-12 09:33] VITALS: BP 136/66
[2020-04-12 11:06] LABS: ABSOLUTE NEUTROPHILS 4.4 thou/uL (1.4-8.2); BASOPHILS 0.6 % (0.0-2.0); EOSINOPHILS 2.2 % (0.0-3.0); HEMATOCRIT 31.7 % (37.0-47.0); HEMOGLOBIN 10.4 gm/dL (12.0-15.0); LYMPHOCYTES 15.4 % (24.0-44.0); MCH 33.4 pg (26.0-34.0); MCHC 32.8 g/dL (28.0-37.0); MONOCYTES 10.2 % (1.0-8.0); PLATELET COUNT 267 thou/uL (150-400); POLYS 71.6 % (36.0-66.0); RBC 3.11 mil/uL (4.20-5.00); WBC 6.2 thou/uL (4.0-11.0)
[2020-04-12] MEDS ORDERED: XANAX 0.5 MG0.5 M1 PO (11:06)
[2020-04-12 11:15] LABS: ANION GAP 7 mmol/L (7-16); BUN 5 mg/dL (7-18); CALCIUM 9.1 mg/dL (8.5-10.1); CHLORIDE 101 mmol/L (98-107); CO2 33 mmol/L (21-32); CREATININE 0.5 mg/dL (0.6-1.0); GLUCOSE 103 mg/dL (74-106); POTASSIUM 3.1 mmol/L (3.5-5.1); SODIUM 141 mmol/L (136-145)
[2020-04-12 11:25] LABS: ALBUMIN 3.6 g/dL (3.4-5.0); SGOT 22 U/L (15-37); SGPT 13 U/L (30-65); TOTAL BILIRUBIN 0.5 mg/dL (0.2-1.0); TOTAL PROTEIN 7.4 g/dL (6.4-8.2); TROPONIN-I <0.06 ng/mL (<0.06)
--- NOTE | 2020-04-13 07:45 | EKG ---
[facility] [place] [address] [place] [address] ELECTROCARDIOGRAM REPORT Name: JOSE A SURESH Room #: 170-10 ADM IN M.R.#: [id number] Admission: 04/12/20 Attend Phys: Con Urias MD Discharge: Date of : 40 Report #: [id number] THIS REPORT FOR: cc: FAM - Family physician unknown FAM - Family physician unknown Zaid Marshall MD [facility] ~ THIS REPORT FOR: //name// [facility] ED Test Date: 2020-04-12 Test Time: 10:05:43 Pat Name: JOSE A SURESH Department: Room: 170 Gender: F Mri Assistant: no : 1940 Requested By: Nabil Sanders Order Number: [id number] MD: Zaid Marshall Measurements Intervals [place] Rate: 83 P: 57 AK: 198 QRS: -17 QRSD: 153 T: 118 QT: 427 QTc: 502 Interpretive Statements Sinus rhythm Left atrial enlargement Left bundle branch block Compared to ECG 03/15/2020 10:44:14 No significant changes Electronically Signed On 04-13-2020 7:44:58 CDT by Zaid Marshall [email or web address] <ELECTRONICALLY SIGNED> By: Zaid Marshall MD, FACC 04/13/20 0744 1005 1005 Zaid Marshall MD, [facility] /EPI
--- NOTE | 2020-04-13 10:51 | NUR ---
CALLED SON (BARTOLO SURESH) BACK RETURNING HIS CALL, LEFT VOICEMAIL [phone]
[2020-04-13 16:02] VITALS: BP 141/68
[2020-04-13 16:20] VITALS: BP 134/74
[2020-04-13 16:55] VITALS: BP 167/120
--- NOTE | 2020-04-13 19:39 | NUR ---
PT. ARRIVED AT THE FLOOR AFTER 1600; PT. AOX4; ST ON THE MONITOR; ELEVATED BP; WHILE TRYING TO STAND UP PT'S HR ELEVATED; ST; PHYSICIAN NOTIFIED; ORDERS ON PLACED; DR. BONILLA NOTIFIED; ORDERS RECEIVED; BP MEDICATION GIVEN; MONITORING; EDUCATED ABOUT FALL PRECAUTIONS; VISITOR POLICY; ST. UNDERSTANDING; ASSESSMENT CHARGED; ADMISSION PERFORMED; PASSED ON REPORT;
[2020-04-13 20:15] VITALS: BP 152/70
[2020-04-14 04:45] VITALS: BP 122/88
--- NOTE | 2020-04-14 07:34 | EKG ---
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 : 1940 Requested By: Con Urias Order Number: [id number] MD: Donald Silvestre Measurements Intervals [place] Rate: 105 P: 63 MD: 181 QRS: -20 QRSD: 148 T: 143 QT: 353 QTc: 467 Interpretive Statements Sinus tachycardia Probable left atrial enlargement Left bundle branch block Compared to ECG 04/12/2020 10:05:43 Sinus rhythm no longer present Electronically Signed On 04-14-2020 7:34:35 CDT by Donald Silvestre [email or web address] <ELECTRONICALLY SIGNED> By: Donald Silvestre MD, FACC 04/14/20 0734 171 [id number] Donald Silvestre MD, [facility] /EPI
[2020-04-14 07:58] LABS: ALBUMIN 3.4 g/dL (3.4-5.0); CALCIUM 9.3 mg/dL (8.5-10.1); CREATININE 0.6 mg/dL (0.6-1.0); POTASSIUM 4.2 mmol/L (3.5-5.1); TOTAL BILIRUBIN 0.3 mg/dL (0.2-1.0)
[2020-04-14 09:00] VITALS: BP 123/50
--- NOTE | 2020-04-14 09:05 | NUR ---
ASSUME CARE 1900. PT/VITALS STABLE. COMPLAINS OF ANXIETY CONTINUOUSLY. SOB WITH ECERTION. ASSESSMENT CHARTED. PROGRESSING MODERATELY TOWARDS POC. PLAN IS TO CONTIUE WITH BREATHING TREATMENTS/MONITOR TREMORS. NO DISTRESS NOTED. POOR REST PER PT. WILL CONTIUE TO MONITOR AND FOLLOW WITH POC
[2020-04-14 12:22] VITALS: BP 125/60
[2020-04-14 16:52] VITALS: BP 141/51
--- NOTE | 2020-04-14 17:37 | NUR ---
RECEIVED PT'S CARE AROUND 0735; PT. ON BED; ALERT; SR ON THE MONITOR; DURING AM ASSESSMENT AOX4; C/O PAIN OVER NECK; NO PRN PAIN MEDICATION DUE; AM MEDICATIONS GIVEN; EDUCATED ABOUT FALL PRECAUTIONS; NEEDS TO BE REMAINED ABOUT IT; EDUCATED ABOUT FLUID INTAKE; ST. UNDERSTANDING; SR ON THE MONITOR; DR. DUBOIS NOTIFIED DURING ROUNDING ABOUT PT. RATHER TO TAKE XANAS; ORDERS ON PLACED; ABLE TO WORK WITH PT AND OT; SOB WITH EXERTION; ASSESSMENT CHARGED; FOLLOWING POC; WILL PASS ON REPORT;
--- NOTE | 2020-04-14 18:07 | NUR ---
Met with patient admits with resp failure. patient resides in independent home/apt. She recently dc from [facility] and rec oxygen. PCP Dr Urias. Discussed post acute care. patient interest in [facility]. [facility] may have bed avail for patient in am. Referral sent for review. Sp with son Manolo discussed plan and he is inagreement. Discussed future plans of assisted living.
[2020-04-14 19:43] VITALS: BP 138/71
--- NOTE | 2020-04-15 03:14 | NUR ---
assumed pt care at the change of shift, pt is awake, alert and orientedx4, sr on te monitor with a bbb, asessments as charted, denies pain, mildly anxious, prn xanax given prn as per mar, denies having concerns, resting in bed, will continue to monitor
[2020-04-15 04:43] VITALS: BP 126/67
[2020-04-15 07:48] VITALS: BP 139/88
[2020-04-15 11:30] VITALS: BP 122/64
--- NOTE | 2020-04-15 15:42 | NUR ---
No bed at [facility] possible bed in am. Updated patient who updated son. She has skilled list she is reviewing for post acute care.
[2020-04-15 15:59] VITALS: BP 138/82
--- NOTE | 2020-04-15 19:18 | NUR ---
ASSUMED CARE AT SHIFT CHANGE, ALERT AND ORIENTED X4. VSS AND AFEBRILE. DENEIS ANY DISOCMFORT. WILL CONTINUE WITH POC.
[2020-04-15 20:34] VITALS: BP 137/69
[2020-04-16 03:30] VITALS: BP 138/82
--- NOTE | 2020-04-16 03:52 | NUR ---
NO EVENTS OVERNIGHT. DENIES CHEST PAIN NAUSEA OR VOMITING. WHEEZING WITH EXERTION. RECEIVING RT NEBULIZERS SCHEDULED. WILL CONTINUE TO MONITOR.
[2020-04-16] MEDS ORDERED: ALBUTEROL2.5 MG/0.5 INH (08:05)
[2020-04-16 08:33] VITALS: BP 149/83
--- NOTE | 2020-04-16 09:58 | NUR ---
PT DISCHARGING TODAY TO [facility] FAXED DC ORDERS/SUMMARY TO FACILITY SPOKE WITH EFREN IN ADM SHE RECEIVED ORDERS AND ARRANGED WC VAN FOR 1300 TODAY. NOTIFIED PT'S SON (MAZIN) OF DC AND TIME OF TRANSPORT. UNIT NOTIFIED AND CHART COPY PER US. RN TO CALL REPORT TO [phone].
[2020-04-16 11:08] VITALS: BP 143/72
--- NOTE | 2020-04-16 12:24 | NUR ---
PT A&OX4, VSS, DENIES PAIN. PATIENT HAS SOA AND WHEEZING WITH EXERTION. PATIENT HAS NON PRODUCTIVE COUGH. PATIENT IS ON 2L OF OXYGEN;SAME AT HOME. PRN ALBUTEROL TREATMENTS. PATIENT SINUS RHYTHM ON MONITOR. PATIENT TRANSFERING TO [facility].
== END 2020-04-16 14:45 | DRG 193 ==
LOC: ER 09:22 → EROBS 12:08 → 2N 12:08 → EROBS 04-13 13:27 → 2N 04-13 16:20
PROVIDERS: Emergency Medicine; ADMIT Family Medicine; ATTEND Family Medicine
DX: J18.9 Pneumonia, unspecified organism (principal); J96.01 Acute respiratory failure with hypoxia; I50.32 Chronic diastolic (congestive) heart failure; J44.1 Chronic obstructive pulmonary disease with (acute) exacerbation; Z20.828 Contact with and (suspected) exposure to other viral communicable diseases; I11.0 Hypertensive heart disease with heart failure; E78.5 Hyperlipidemia, unspecified; I25.10 Atherosclerotic heart disease of native coronary artery without angina pectoris; F41.9 Anxiety disorder, unspecified; I34.0 Nonrheumatic mitral (valve) insufficiency; Z90.2 Acquired absence of lung [part of]; Z85.3 Personal history of malignant neoplasm of breast; Z88.0 Allergy status to penicillin; Z79.82 Long term (current) use of aspirin; Z79.899 Other long term (current) drug therapy
CPT/HCPCS: 10081

== ENCOUNTER → 2020-06-01 | Outpatient (CLI) | payer OTHER, MEDICARE ==
[~2020-06-01] MED LIST changes: +ALBUTEROL2.5 MG/0.5 INH; +XANAX 0.5 MG0.5 M1 PO
== END ==
LOC: CAT 13:18
PROVIDERS: ATTEND Pediatrics
DX: J43.9 Emphysema, unspecified (principal); I25.10 Atherosclerotic heart disease of native coronary artery without angina pectoris; I70.0 Atherosclerosis of aorta; J90 Pleural effusion, not elsewhere classified; J98.11 Atelectasis; R91.8 Other nonspecific abnormal finding of lung field

== ENCOUNTER 2020-06-15 15:13 | Inpatient (IN) | payer OTHER, MEDICARE ==
[~2020-06-15] VITALS: Ht 165.1 cm; Wt 78.5 kg
[2020-06-15 15:15] VITALS: BP 145/70
[2020-06-15 17:25] LABS: BASOPHILS 1.3 % (0.0-2.0); EOSINOPHILS 1.2 % (0.0-3.0); HEMATOCRIT 26.5 % (37.0-47.0); HEMOGLOBIN 8.3 gm/dL (12.0-15.0); LYMPHOCYTES 12.4 % (24.0-44.0); MCH 27.5 pg (26.0-34.0); MCHC 31.3 g/dL (28.0-37.0); MONOCYTES 9.1 % (1.0-8.0); PLATELET COUNT 274 thou/uL (150-400); RBC 3.02 mil/uL (4.20-5.00); RDW 18.3 % (10.5-14.5); WBC 9.2 thou/uL (4.0-11.0)
[2020-06-15 17:47] LABS: CREATININE 0.8 mg/dL (0.6-1.0); TROPONIN-I 0.06 ng/mL (<0.06)
[2020-06-15 17:49] LABS: POTASSIUM 2.5 mmol/L (3.5-5.1)
[2020-06-15 23:00] VITALS: BP 140/75
[2020-06-16 00:24] VITALS: BP 106/61
[2020-06-16 01:02] LABS: pH 7.414 (7.360-7.450)
[2020-06-16 01:03] LABS: BE(vivo) 14.6 mmol/L (-2 to +3); HCO3 41.3 mmol/L (22.0-26.0); PCO2 66.1 mmHg (35.0-45.0); PO2 125.1 mmHg (80.0-100.0); sO2 98.4 % (92.0-98.0)
[2020-06-16 05:26] VITALS: BP 108/60
[2020-06-16 06:31] LABS: ABSOLUTE NEUTROPHILS 6.1 thou/uL (1.4-8.2); BASOPHILS 0.3 % (0.0-2.0); EOSINOPHILS 0.1 % (0.0-3.0); HEMATOCRIT 25.6 % (37.0-47.0); HEMOGLOBIN 7.7 gm/dL (12.0-15.0); LYMPHOCYTES 15.6 % (24.0-44.0); MCH 27.2 pg (26.0-34.0); MCHC 30.2 g/dL (28.0-37.0); MCV 89.9 fL (80.0-100.0); MONOCYTES 10.4 % (1.0-8.0); PLATELET COUNT 242 thou/uL (150-400); POLYS 73.6 % (36.0-66.0); RBC 2.85 mil/uL (4.20-5.00); RDW 18.3 % (10.5-14.5); WBC 8.3 thou/uL (4.0-11.0)
[2020-06-16 06:54] LABS: ALBUMIN 3.2 g/dL (3.4-5.0); CALCIUM 8.6 mg/dL (8.5-10.1); CREATININE 0.8 mg/dL (0.6-1.0); TOTAL BILIRUBIN 0.4 mg/dL (0.2-1.0); TOTAL PROTEIN 6.8 g/dL (6.4-8.2)
[2020-06-16 06:56] LABS: POTASSIUM 2.9 mmol/L (3.5-5.1)
[2020-06-16 08:58] VITALS: BP 98/57
[2020-06-16 13:00] VITALS: BP 111/73
--- NOTE | 2020-06-16 13:55 | NUR ---
UPDATED SON MAZIN ([phone]) ON POC PER PT'S REQUEST.
--- NOTE | 2020-06-16 14:00 | NUR ---
IV TEAM CALLED FOR NEW ACCESS. PT DIFFICULT STICK
[2020-06-16 17:55] VITALS: BP 97/40
[2020-06-16 22:33] VITALS: BP 115/81
[2020-06-17] VITALS (8 sets, daily range): BP systolic 101–123; BP diastolic 52–79
[2020-06-17 08:28] LABS: HEMATOCRIT 22.4 % (37.0-47.0); HEMOGLOBIN 6.9 gm/dL (12.0-15.0)
[2020-06-17 08:30] LABS: MCHC 30.8 g/dL (28.0-37.0); MCV 87.9 fL (80.0-100.0); RBC 2.54 mil/uL (4.20-5.00); RDW 18.6 % (10.5-14.5)
[2020-06-17 08:50] LABS: CALCIUM 8.9 mg/dL (8.5-10.1); CREATININE 0.9 mg/dL (0.6-1.0); POTASSIUM 3.6 mmol/L (3.5-5.1); TOTAL BILIRUBIN 0.3 mg/dL (0.2-1.0); TOTAL PROTEIN 6.4 g/dL (6.4-8.2)
--- NOTE | 2020-06-18 01:25 | NUR ---
PT ADMITTED FROM THE ER WITH C/O SEVERE COPD,HYPOKALEMIA AND COVID +VE.PT A/O X4.PT UP WITH STANDBY ASSIST TO BSC.PT IS ON TELE AND IS ST BETWEEN 115-120.PT IS ON 2L OF O2 PER NC.PT HAS BLE EDEMA.PT APPEAR TO BE IN NO ACUTE DISTRESS.WILL CONTINUE TO MONITOR
[2020-06-18 03:43] VITALS: BP 134/88
--- NOTE | 2020-06-18 07:01 | NUR ---
[facility] LETTER ISSUED TO PATIENT IN CONJUNCTION WITH ADMISSION PACKET COPY GIVEN BY REGISTRATION
[2020-06-18 07:15] VITALS: BP 120/62
[2020-06-18 08:05] LABS: ABSOLUTE NEUTROPHILS 5.3 thou/uL (1.4-8.2); BASOPHILS 0.6 % (0.0-2.0); EOSINOPHILS 0.3 % (0.0-3.0); HEMATOCRIT 23.8 % (37.0-47.0); HEMOGLOBIN 7.4 gm/dL (12.0-15.0); MCHC 30.9 g/dL (28.0-37.0); MCV 87.4 fL (80.0-100.0); MONOCYTES 10.3 % (1.0-8.0); PLATELET COUNT 196 thou/uL (150-400); POLYS 72.8 % (36.0-66.0); RBC 2.73 mil/uL (4.20-5.00); RDW 18.5 % (10.5-14.5); WBC 7.2 thou/uL (4.0-11.0)
[2020-06-18 08:16] LABS: ALBUMIN 3.2 g/dL (3.4-5.0); CALCIUM 9.4 mg/dL (8.5-10.1); CREATININE 0.8 mg/dL (0.6-1.0); POTASSIUM 3.5 mmol/L (3.5-5.1); TOTAL BILIRUBIN 0.2 mg/dL (0.2-1.0); TOTAL PROTEIN 6.6 g/dL (6.4-8.2)
[2020-06-18 08:55] LABS: ANISOCYTOSIS 1+; HYPOCHROMASIA 2+; OVALOCYTES 1+; PLATELET ESTIMATE NORMAL
--- NOTE | 2020-06-18 13:16 | NUR ---
PT CARE ASSUMED AT 0700, ALERT AND ORIENTED X3, FORGETFUL AT TIMES. PT IS 2L OF OXYGEN, SOB WITH EXERTION. PT UP TO BSC INDEPENDENTLY. PT HAS NPO FOR RIGHT THORACENTESIS. NO SKIN ISSUES. PT DENIES ANY NEEDS AT MOMENT. FALL PRECAUTIONSS IN PLACE. WILL CONTINUE TO MONITOR .
--- NOTE | 2020-06-18 14:48 | NUR ---
Patient admits with COPD, COVID positive. Patient in enhanced isolation. Attempted to call patient in room unavailable. Patient to have thoranthesis today. Sp with patients son Manolo. Since Mar patient has slowly been decling in health. Prior to mar patient was independent with adls and driving, Patient with recent dc from [facility] in [place]. She is rec home health care from [facility]. Son reports she lives in independent apt. There are steps to enter but son reports use garage where elevator is located. Patient has home oxygen and uses a walker for ambulation. Patient has been to skilled rehab x3. Sons have been discussing assisted living. Discussed therapy evals to assist with dc planning.
[2020-06-18 14:55] LABS: COLOR AMBER; SOURCE RIGHT CHEST; TOTAL VOLUME 60 mL
[2020-06-18 14:56] LABS: CLARITY CLOUDY
[2020-06-18 15:03] VITALS: BP 95/53
[2020-06-18 15:14] LABS: BF NUCLEATED CELLS 151 /mm3; BF RBC 14032 /mm3
[2020-06-18 16:14] LABS: BF MACROPHAGE 11 %; BF NEUTROPHILS 4 %
[2020-06-18 19:34] VITALS: BP 115/67
[2020-06-19 02:38] VITALS: BP 123/70
--- NOTE | 2020-06-19 06:14 | NUR ---
PLEASANT AND COOPERATIVE, PT RESTING OFF AND ON, STATING "THE STERIODS KEEP ME UP" DENIES PAIN, ABLE TO USE BSC WITH STANDBY ASSIST, BATH GIVEN, 2L NC, PROGRESSING TOWARD CARE PLAN
[2020-06-19 08:03] VITALS: BP 116/87
[2020-06-19] MEDS ORDERED: RAYOS5 MG PO (08:16)
[2020-06-19] MEDS ORDERED: CEFDINIR300 MG PO (08:16)
--- NOTE | 2020-06-19 10:33 | NUR ---
PT CARE ASSUMED AT 0700, ALERT AND ORIENTED X4, FORGETFUL AT TIMES. PT DENIES ANY PAIN, NAUSEA AND VOMITTING. PT IS ON 2L OF OXYGEN, PT'S BASELINE AT HOME AT HOME. RIGHT THORACENTESIS SITE CLEAN, DRY AND INTACT, NO SIGNS OF BLEEDING. FALL PREACAUTIONS IN PLACE. PT DENIES ANY NEEDS AT THE MOMENT. PROFRESSING TOWARDS POC.
[2020-06-19 10:39] LABS: SOURCE CHEST
[2020-06-19 10:40] LABS: SOURCE CHEST
[2020-06-19 11:31] VITALS: BP 100/65
--- NOTE | 2020-06-19 12:56 | NUR ---
DISCHARGE NOTE: SW reviewed chart and spoke with nursing and attending physician. Pt remains in Enhanced Isolation due to COVID-19. Pt is medically stable for discharge home today pending pulmonary clearance. SW spoke with pt via phone to discuss discharge plan. Pt states that she does not want HH services ordered. SW encouraged pt to contact her PCP if she needs HH after discharge. Pt verbalized understanding. Pt states her son will be able to provide transportation home when she is discharged. SW updated [facility] liaison. No SW needs identified at this time, but is available to assist should needs arise.
[2020-06-19 15:08] LABS: BODY FLUID ALBUMIN 1.1 g/dL (Not Estab.); BODY FLUID AMYLASE 32 U/L (()); BODY FLUID GLUCOSE 125 mg/dL (()); BODY FLUID LDH 82 IU/L (())
[2020-06-19 15:26] VITALS: BP 111/68
[2020-06-19 20:53] VITALS: BP 116/68
[2020-06-20 05:35] VITALS: BP 126/69
--- NOTE | 2020-06-20 06:34 | NUR ---
PLEASANT AND COOPERATIVE SLEEPING OFF AND ON, STILL ANXIOUS TO GET HOME
[2020-06-20 07:11] VITALS: BP 116/73
--- NOTE | 2020-06-20 10:55 | NUR ---
PT CARE ASSUMED AT 070, ALERT AND ORIENTED X4, DENIES ANY PAIN. DR. SILVINO HURLEY, DISCHARGE PENDING. PT CONTIUNES TO BE ON 2L OF OXYGEN, PT BASELINE AT HOME. UP AD HEMA TO BSC. DENIES ANY NEEDS AT MOMENT. WAITING ON D/S ORDERS.
[2020-06-20 11:36] VITALS: BP 116/73
--- NOTE | 2020-06-22 07:54 | EKG ---
[place] [address] [facility] [place] [place] [address] ELECTROCARDIOGRAM REPORT Name: JOSE A SURESH Room #: 352-P [facility] IN .R.#: [id number] Admission: 06/15/20 Attend Phys: Con Urias MD Discharge: 06/20/20 Date of : 40 Report #: [id number] [facility] ED Test Date: 2020-06-15 Test Time: 15:27:35 Pat Name: JOSE A SURESH Department: Room: 170 Gender: F Facility Technician: JCHAIOCTAVIA : 1940 Requested By: Angel Cool Order Number: [id number] MD: Donald Silvestre Measurements Intervals [place] Rate: 110 P: 26 MA: 141 QRS: 35 QRSD: 151 T: 195 QT: 387 QTc: 524 Interpretive Statements Sinus tachycardia Atrial premature complex Left bundle branch block Compared to ECG 04/13/2020 17:19:05 Atrial premature complex(es) now present Electronically Signed On 06-16-2020 7:21:36 LINE SUPPLY by Donald Silvestre [email or web address] <ELECTRONICALLY SIGNED> By: Donald Silvestre MD, [facility] 06/16/20 0721 1527 1527 Donald Silvestre MD, [facility] /EPI
--- NOTE | 2020-06-22 18:06 | PATH ---
[facility] [address] [place] [address] PATHOLOGY RPT PROCEDURE Name: JOSE A SURESH Room #: 352-P DIS IN M.R.#: [id number] Admission: 06/15/20 Date of : 40 Discharge: 06/20/20 Report #: [id number] Path Case #: [id number] Note [facility] Accession Number: [id number] TESTS RESULT FLAG UNITS REF RANGE LAB Clinician Provided Cytology Information No. of containers..01 Other (Miscellaneous) Source: PLEURAL FLUID DIAGNOSIS: 02 PLEURAL FLUID NEGATIVE FOR MALIGNANT EPITHELIAL CELLS. REACTIVE MESOTHELIAL CELLS ARE PRESENT. THIS INTERPRETATION INCLUDES EVALUATION OF A CELL BLOCK. Pathologist ICD10: 02 J44.9 Signed out by: 02 Diane Rivera MD, Pathologist NPI- [id number] Performed by: 01 Dania Han, [employer] ([facility]) Gross description: 01 15ML, CLOUDY ORANGE, 1 TP 1 CB /BOBBY 06/19/2020 1914 Local FLAG LEGEND: L-Low Normal,H-High Normal,LL-Alert Low,HH-Alert High <-Panic Low,>-Panic High,A-Abnormal,AA-Critical Abnormal Performed at: [address] [place] [address] Jose D Jarvis MD, [address] [address] Diane Rivera MD, Specimen Comment: A courtesy copy of this report has been sent to [phone], [phone] Specimen Comment: [id number] Specimen Comment: Report sent to / DR DUBOIS Performed at: [address], [place], [place] [id number] MD Jose D Jarvis MD Phone: [phone]
== END 2020-06-20 13:58 | disposition home or self-care (01) | DRG 177 ==
LOC: ER 15:13 → EROBS 18:15 → 3W 18:15 → EROBS 23:42 → 3W 06-17 21:25
PROVIDERS: Emergency Medicine; Pediatrics; ADMIT Family Medicine; ATTEND Family Medicine
PROC: 0W993ZZ Drainage of Right Pleural Cavity, Percutaneous Approach (ICD-10-PCS; principal; 2020-06-18)
DX: U07.1 COVID-19 (principal); J96.21 Acute and chronic respiratory failure with hypoxia; J12.89 Other viral pneumonia; J90 Pleural effusion, not elsewhere classified; I50.32 Chronic diastolic (congestive) heart failure; E78.5 Hyperlipidemia, unspecified; I25.10 Atherosclerotic heart disease of native coronary artery without angina pectoris; J43.9 Emphysema, unspecified; D64.9 Anemia, unspecified; E11.9 Type 2 diabetes mellitus without complications; R91.1 Solitary pulmonary nodule; I27.20 Pulmonary hypertension, unspecified; I11.0 Hypertensive heart disease with heart failure; I34.0 Nonrheumatic mitral (valve) insufficiency; E87.6 Hypokalemia; Z87.891 Personal history of nicotine dependence; Z79.01 Long term (current) use of anticoagulants; Z85.3 Personal history of malignant neoplasm of breast; Z79.82 Long term (current) use of aspirin; Z86.12 Personal history of poliomyelitis; Z79.899 Other long term (current) drug therapy; Z88.0 Allergy status to penicillin; Z85.118 Personal history of other malignant neoplasm of bronchus and lung
CPT/HCPCS: 10879

== ENCOUNTER 2020-06-28 13:02 | Inpatient (IN) | payer OTHER, MEDICARE ==
[~2020-06-28] VITALS: Ht 165.1 cm; Wt 85.7 kg
[~2020-06-28 13:02] MED LIST changes: +RAYOS5 MG PO
[2020-06-28 13:03] VITALS: BP 101/70
[2020-06-28 13:42] LABS: BE(vivo) 12.7 mmol/L (-2 to +3); PO2 115.7 mmHg (80.0-100.0); pH 7.416 (7.360-7.450); sO2 98.1 % (92.0-98.0)
[2020-06-28 14:25] LABS: HEMATOCRIT 26.2 % (37.0-47.0); HEMOGLOBIN 7.9 gm/dL (12.0-15.0); MCV 86.5 fL (80.0-100.0); RBC 3.03 mil/uL (4.20-5.00); RDW 18.8 % (10.5-14.5); WBC 9.2 thou/uL (4.0-11.0)
[2020-06-28 14:42] LABS: ANION GAP 2 mmol/L (7-16); BUN 11 mg/dL (7-18); CALCIUM 9.1 mg/dL (8.5-10.1); CHLORIDE 102 mmol/L (98-107); CO2 40 mmol/L (21-32); CREATININE 0.8 mg/dL (0.6-1.0); GLUCOSE 127 mg/dL (74-106); SODIUM 144 mmol/L (136-145); TROPONIN-I <0.06 ng/mL (<0.06)
[2020-06-28 14:47] LABS: POTASSIUM 2.5 mmol/L (3.5-5.1)
[2020-06-29] VITALS (7 sets, daily range): BP systolic 120–136; BP diastolic 69–97
[2020-06-29 06:19] LABS: HEMATOCRIT 26.1 % (37.0-47.0); HEMOGLOBIN 7.9 gm/dL (12.0-15.0); MCH 26.1 pg (26.0-34.0); MCHC 30.1 g/dL (28.0-37.0); MCV 86.6 fL (80.0-100.0); RBC 3.02 mil/uL (4.20-5.00); RDW 18.8 % (10.5-14.5); WBC 10.7 thou/uL (4.0-11.0)
[2020-06-29 06:54] LABS: CALCIUM 9.2 mg/dL (8.5-10.1); CREATININE 0.8 mg/dL (0.6-1.0); POTASSIUM 3.6 mmol/L (3.5-5.1)
--- NOTE | 2020-06-29 07:16 | EKG ---
[place] [address] [facility] [employer] [place] [address] ELECTROCARDIOGRAM REPORT Name: JOSE A SURESH Room #: 170-15 ADM IN M.R.#: [id number] Admission: 06/28/20 Attend Phys: Con Urias MD Discharge: Date of : 40 Report #: [id number] [facility] ED Test Date: 2020-06-28 Test Time: 13:17:00 Pat Name: JOSE A SURESH Department: Room: 170 Gender: F Circulation Supervisor: MILAGRO : 1940 Requested By: Orlando Krishnan Order Number: [id number] MD: Donald Silvestre Measurements Intervals [place] Rate: 108 P: 0 CO: 161 QRS: 0 QRSD: 139 T: -66 QT: 381 QTc: 511 Interpretive Statements Ventricular-paced complexes No further rhythm analysis attempted due to paced rhythm Probable left atrial enlargement Compared to ECG 06/15/2020 15:27:35 Intraventricular conduction delay now present T-wave abnormality now present ST (T wave) deviation now present Sinus tachycardia no longer present Atrial premature complex(es) no longer present Left bundle-branch block no longer present Electronically Signed On 06-29-2020 7:16:40 [employer] by Donald Silvestre [email or web address] <ELECTRONICALLY SIGNED> By: Donald Silvestre MD, FACC 06/29/20 0716 16 16 Donald Silvestre MD, FACC /EPI
--- NOTE | 2020-06-29 14:35 | NUR ---
79 y/o female with COPD who was recently discharged on the after being admitted for COVID. The pt continues on a steroid taper, but comes in due to increased dyspnea over the past few days. The patient is being admitted for Acute Hypoxic respiratory Failure as with recent COVD - 19 infection. When discharged on June 20 2020 the patient refused Home Health services and was transported home by her son Manolo Friedman at [phone]. At that time sons had discussed with CM team the possibly need to move from Independent apartment with elevator entrance [facility] into an Assisted Living situation for decline in health since April. Spoke with Manolo on 06-29-2020 at [phone] and would like to look for skilled rehab with adjacent Assisted Living upon discharge. CM will follow for needs as needed for discharge.
[2020-06-30] VITALS (9 sets, daily range): BP systolic 89–143; BP diastolic 47–84
--- NOTE | 2020-06-30 05:34 | NUR ---
Pt transported on hospital bed from ED with possessions @ 1930 06/29/20. Pt on 2L NC and breathing comfortably with no signs of distress. admission packet given to pt and appropriate bands placed on pt. Pt on Covid precautions. continue with plan of care
[2020-06-30 07:10] LABS: HEMOGLOBIN 7.4 gm/dL (12.0-15.0); MCH 25.9 pg (26.0-34.0); MCHC 29.7 g/dL (28.0-37.0); MCV 87.2 fL (80.0-100.0); RBC 2.86 mil/uL (4.20-5.00); RDW 19.1 % (10.5-14.5); WBC 9.8 thou/uL (4.0-11.0)
[2020-06-30 07:28] LABS: CALCIUM 9.3 mg/dL (8.5-10.1); CREATININE 0.8 mg/dL (0.6-1.0); POTASSIUM 3.8 mmol/L (3.5-5.1)
--- NOTE | 2020-06-30 10:32 | 2DMMODE ---
[facility] [place] [address] [place] [address] 2 D/M-MODE ECHOCARDIOGRAM Name: JOSE A SURESH Room #: 351-P ADM IN M.R.#: [id number] Admission: 06/28/20 Attend Phys: Con Urias MD Discharge: Date of : 40 Report #: [id number] THIS REPORT FOR: cc: Con Urias MD, Neal A. MD Park, Jin S. MD ~ APPROVED REPORT Study performed: 06/30/2020 09:59:19 EXAM: Limited 2D, Doppler, and color-flow Echocardiogram Patient Location: Bedside Room #: 351 Status: routine BSA: 1.82 HR: 95 bpm BP: 136/73 mmHg Other Information Study Quality: Adequate Technically limited study due to COPD, obesity, sitting up in bed.. Indications Limited echo done for shortness of breath in the presence of COVID-19. Hx: CAD, COPD, cancer, HTN, HLP. (Complete echo done 01/31/20) Tricuspid Valve TR Peak Tylor.: 3.89 m/s RAP Estimate: 15.00 mmHg TR Peak Gr.: 61.00 mmHg PA Pressure: 75.00 mmHg Left Ventricle The left ventricle is normal size. There is normal LV segmental wall motion. Mild concentric left ventricular hypertrophy. Left ventricular systolic function is normal. LVEF is 55%. Aortic Valve The aortic valve is grossly normal. No aortic regurgitation is present. Mitral Valve Mitral valve leaflets are mildly thickened and calcified. Moderate to [facility] [address] [place] [address] 2 D/M-MODE ECHOCARDIOGRAM Name: JOSE A SURESH Room #: 351-P ADM IN M.R.#: [id number] Admission: 06/28/20 Attend Phys: Con Urias, Discharge: Date of : 40 Report #: [id number] severe mitral regurgitation Tricuspid Valve The tricuspid valve is normal in structure. Moderate to severe tricuspid regurgitation. Estimated PAP is 70mmHg. Great Vessels IVC is dilated and collapses <50% with inspiration. Pericardium There is no pericardial effusion. <Conclusion> The left ventricle is normal size. Mild concentric left ventricular hypertrophy. Left ventricular systolic function is normal. Mitral valve leaflets are mildly thickened and calcified. Moderate to severe mitral regurgitation Moderate to severe tricuspid regurgitation. Estimated PAP is 70mmHg. <ELECTRONICALLY SIGNED> By: Aryan Negron MD 06/30/20 1031 30 30 Aryan Negron MD /INF
--- NOTE | 2020-06-30 14:16 | NUR ---
INITIAL ASSESSMENT: ALISTAIR reviewed chart and spoke with nursing and attending physician. Pt was admitted from home due to hypoxia. Pt placed in Enhanced Isolation due to recent positive COVID-19 test on 06/15. Pt was hospitalized and then discharged home. Pt declined HH services at time of discharge. Pt is afebrile and on 2L of O2. Pt is on IV steroids. ALISTAIR spoke with pt via phone. Introduced role of SW. Pt is alert/orientated x 4. Pt known to SW from previous hospitalizations. Pt lives alone in a ground level apt. No stairs to navigate. [facility] the past. Pt has been to [facility]2019) and [facility] (2019). ALISTAIR discussed discharge plans with pt. Pt states she is unsure if shmaria c would want to go to a SNF upon discharge, as she would not be able to have any visitors at the facility. Pt gave consent for ALISTAIR to contact her son, Manolo, to further discuss discharge plans. ALISTAIR placed call to Manolo. Voice mail box is full. ALISTAIR requested PT/OT to be ordered. Pt's PCP is Dr. Urias. ALISTAIR is following to assist as needed with discharge planning.
--- NOTE | 2020-06-30 19:28 | NUR ---
RN ASSUMED PT'S CARE AT 0700AM, PT IS A&OX3, PT IS CONTINUING O2 2L/MIN/NC TO KEEP O2SAT 92-95%, PT'S VS ARE STABLE, PT DENIES PAIN BY THIS TIME.
--- NOTE | 2020-07-01 01:13 | NUR ---
PT ALERT AND ORIENTED X4. ANXIOUS. XANAX GIVEN FOR ANXIETY AND TRAMADOL FOR KAUR. PT STILL ANXIOUS. NOTIFIED DR DUBOIS. CHANGED XANAX TO Q 4 HRS PRN. AFRIN NASAL SPRAY ORDERED FOR SINUS CONGESTION. VSS. METOPROLOL IV GIVEN X1 ORDERED BY DR LEONARD.BED DOWN CALL LIGHT IN REACH. PT ISABLE TO GET UP TO BSC INDEPENDENTLY.
[2020-07-01 03:49] VITALS: BP 118/72
--- NOTE | 2020-07-01 03:56 | NUR ---
PT RESTING QUIETLY AFTER SECOND XANAX. NO S/S DISTRESS ON 2.5 LNC.
[2020-07-01 07:02] VITALS: BP 146/87
[2020-07-01 12:46] LABS: CREATININE 0.9 mg/dL (0.6-1.0); MAGNESIUM 2.3 mg/dL (1.8-2.4); POTASSIUM 4.6 mmol/L (3.5-5.1)
[2020-07-01 13:19] LABS: CALCIUM 9.6 mg/dL (8.5-10.1)
--- NOTE | 2020-07-01 14:34 | NUR ---
ALISTAIR reviewed chart and spoke with nursing and attending physician. Pt remains in Enhanced Isolation due to COVID-19. Pt is afebrile and on 2L of O2. Pt is progressing towards goals for discharge. ALISTAIR spoke with pt's son, Manolo, via phone to discuss discharge plans. Pt's sons are meeting with [facility] in [place], next week to work on moving patient into their facility. ALISTAIR discussed SNF placement if needed prior to pt moving into [facility]. Pt's son states that they do not want pt returning home, as pt needs more care than family can provide. ALISTAIR discussed options with pt's on. Request for referral to be sent to [facility] for review. Pt's son requests to speak with attending physician. ALISTAIR faxed referral to [facility] and notified admissions liaison. ALISTAIR provided Manolo's contact info to attending physician. Awaiting input from [facility] at this time. ALISTAIR is following to assist as needed with discharge planning.
[2020-07-01 15:11] VITALS: BP 114/56
--- NOTE | 2020-07-01 17:57 | NUR ---
RN ASSUMED PT'S AT 0700AM, PT IS A&OX3, PT IS ON O2 2L/MIN/NC, PT HAS SOB WITH ACTIVITIES, PT CAN GET UP TO BSC BY HERSELF , PT'S VS ARE STABLE AT THIS TIME.
[2020-07-01 19:38] VITALS: BP 135/58
--- NOTE | 2020-07-02 00:18 | NUR ---
PT ALERT AND ORIENTED X4. VSS AFEBRILE. UNLABORED ON 2LNC. PT UP TO BSC, AND INC OF URINE AT TIMES IN BED. XANAX GIVEN FOR ANXIETY AND TRAZADONE FOR C/O KAUR. PRESENTLY SHE IS SLEEPING QUIETLY. NO S/S DISTRESS. BED DOWN. CALL LIGHT IN REACH. BED ALARM ON. WILL CONTINUE TO MONITOR PT FOR CHANGES.
[2020-07-02 03:31] VITALS: BP 126/70
--- NOTE | 2020-07-02 05:57 | NUR ---
PT SLEEPING NO S/S DISTRESS. VSS AFEBRILE. UNLABORED ON RA. PROGRESSING TOWARDS D/C GOALS.
[2020-07-02 07:42] VITALS: BP 132/72
[2020-07-02] MEDS ORDERED: VERAPAMIL HCL 880 M1 PO (07:54)
[2020-07-02 09:23] VITALS: BP 129/88
--- NOTE | 2020-07-02 11:08 | NUR ---
DISCHARGE NOTE: ALISTAIR reviewed chart and spoke with nursing and attending physician. Pt remains in Enhanced Isolation due to COVID-19. Pt is medically stable for discharge home today. Orders written for pt to have HH services. ALISTAIR spoke with pt via phone to discuss discharge plan. Pt is adamant about returning home and is refusing SNF placement at this time. Pt requests [facility] to be [facility] to [facility] ALISTAIR faxed referral and finalized discharge orders/summary to [facility] and confirmed info was received with [facility] liaison. [facility] is able to accept pt on service. ALISTAIR spoke with pt's son, Manolo, via phone to provide update and discuss discharge. Pt's son is aware and agreeable with discharge plan. Pt's son to provide transportation home around 1830 this evening. ALISTAIR updated pt's nurse. Contact info for [facility] placed in discharge summary. ALISTAIR updated [facility] liaison. No additional SW needs identified at this time but is available to assist should needs arise.
[2020-07-02 11:45] VITALS: BP 121/81
[2020-07-02 14:27] VITALS: BP 121/81
== END 2020-07-02 15:14 | disposition home health service (06) | DRG 177 ==
LOC: ER 13:02 → EROBS 15:21 → 3W 15:21 → EROBS 06-29 04:36 → 3W 06-29 19:33
PROVIDERS: Emergency Medicine; Nurse Practitioner; ADMIT Family Medicine; ATTEND Family Medicine
DX: U07.1 COVID-19 (principal); J12.89 Other viral pneumonia; J96.21 Acute and chronic respiratory failure with hypoxia; J96.22 Acute and chronic respiratory failure with hypercapnia; I50.32 Chronic diastolic (congestive) heart failure; E87.6 Hypokalemia; D64.9 Anemia, unspecified; I73.9 Peripheral vascular disease, unspecified; I11.0 Hypertensive heart disease with heart failure; Z60.2 Problems related to living alone; E83.42 Hypomagnesemia; I08.1 Rheumatic disorders of both mitral and tricuspid valves; F41.9 Anxiety disorder, unspecified; E78.5 Hyperlipidemia, unspecified; I25.10 Atherosclerotic heart disease of native coronary artery without angina pectoris; J43.9 Emphysema, unspecified; Z85.3 Personal history of malignant neoplasm of breast; Z86.12 Personal history of poliomyelitis; Z88.0 Allergy status to penicillin; Z87.891 Personal history of nicotine dependence; Z79.82 Long term (current) use of aspirin; Z79.899 Other long term (current) drug therapy; Z85.118 Personal history of other malignant neoplasm of bronchus and lung; Z71.6 Tobacco abuse counseling
CPT/HCPCS: 10879

== ENCOUNTER 2020-07-06 08:52 | Inpatient (IN) | payer OTHER, MEDICARE ==
[~2020-07-06] VITALS: Ht 165.1 cm; Wt 77.1 kg
[~2020-07-06 08:52] MED LIST changes: +VERAPAMIL HCL 880 M1 PO
[2020-07-06 08:53] VITALS: BP 152/72
[2020-07-06 09:38] LABS: HEMATOCRIT 28.7 % (37.0-47.0); HEMOGLOBIN 8.5 gm/dL (12.0-15.0); MCH 25.6 pg (26.0-34.0); MCHC 29.7 g/dL (28.0-37.0); MCV 86.2 fL (80.0-100.0); PLATELET COUNT 267 thou/uL (150-400); RBC 3.33 mil/uL (4.20-5.00); RDW 19.4 % (10.5-14.5); WBC 10.5 thou/uL (4.0-11.0)
[2020-07-06 09:51] LABS: ANION GAP 9 mmol/L (7-16); BUN 37 mg/dL (7-18); CALCIUM 9.9 mg/dL (8.5-10.1); CHLORIDE 102 mmol/L (98-107); CO2 33 mmol/L (21-32); CREATININE 1.2 mg/dL (0.6-1.0); GLUCOSE 112 mg/dL (74-106); SODIUM 144 mmol/L (136-145)
--- NOTE | 2020-07-06 09:51 | EKG ---
[address] [address] [place] [address] ELECTROCARDIOGRAM REPORT Name: JOSE A SURESH Room #: PRE [facility]..#: [id number] Admission: Attend Phys: Discharge: Date of : 40 Report #: [id number] [facility] ED Test Date: 2020-07-06 Test Time: 08:53:03 Pat Name: JOSE A SURESH Department: Room: Gender: F Plaster Patternmaker: JUVENTINO : 1940 Requested By: Jose A Simmons Order Number: [id number] MD: Donald Silvestre Measurements Intervals [place] Rate: 69 P: 87 UT: 260 QRS: 68 QRSD: 98 T: -89 QT: 383 QTc: 411 Interpretive Statements Sinus rhythm Multiple premature complexes, vent & supraven Sinus pause Probable anterior infarct, age indeterminate Compared to ECG 06/28/2020 13:17:00 Sinus pause or arrest now present First degree AV block now present Myocardial infarct finding now present Ventricular-paced complex(es) or rhythm no longer present Electronically Signed On 07-06-2020 9:50:51 ACTIVE DIRECTORY ENGINEER by Donald Silvestre [email or web address] <ELECTRONICALLY SIGNED> By: Donald Silvestre MD, [facility] 07/06/20 0950 0853 0853 Donald Silvestre MD, [facility] /[facility]
[2020-07-06 09:52] LABS: POTASSIUM 5.3 mmol/L (3.5-5.1)
[2020-07-06 09:59] LABS: TROPONIN-I <0.06 ng/mL (<0.06)
[2020-07-06 11:38] LABS: URINE BILIRUBIN NEGATIVE (Negative); URINE BLOOD 1+ (Negative); URINE CLARITY SL CLOUDY; URINE COLOR YELLOW; URINE GLUCOSE-RANDOM* NEGATIVE (Negative); URINE KETONES NEGATIVE (Negative); URINE NITRITE-REFLEX NEGATIVE (Negative); URINE PROTEIN (DIPSTICK) 1+ (Negative); URINE SPECIFIC GRAVITY 1.025 (1.005-1.035)
[2020-07-06 11:39] LABS: URINE LEUKOCYTES-REFLEX 2+ (Negative)
[2020-07-06 12:13] LABS: CRYSTALS None Seen /LPF (None Seen); HYALINE CASTS 0-3 Few /LPF (None Seen); SQUAMOUS 4-10 Moderate /LPF (0-3)
[2020-07-06 12:15] LABS: URINE RBC 0-2 Rare /HPF (0-2); URINE WBC-REFLEX 6-15 Few /HPF (0-5)
[2020-07-06 13:18] LABS: ABSOLUTE NEUTROPHILS 8.9 thou/uL (1.4-8.2)
[2020-07-06 16:31] VITALS: BP 152/74
[2020-07-06 16:41] VITALS: BP 134/75
--- NOTE | 2020-07-06 16:48 | NUR ---
Patient discharged to home on 07-02-2020 and presented back in the ED today with stated lives alone. She states has fallen multiple times at home but unable to say exactly when. However she states the last fall was last night sometime in the middle of the night. Pt states remembers going to bathroom then next moment she was on the floor. This was unwitnessed and pt unsure if lost consciousness but does not think so. She states she was unable to get up because of generalized weakness. SW has spoken to attending Dr. Urias and plan is to admit for 1-2 days then to transfer for skilled care at [facility]. The patients son is the main contact at [phone]. CM will continue to follow for discharge needs.
[2020-07-06 16:55] VITALS: BP 147/69
[2020-07-06 19:28] VITALS: BP 133/52
--- NOTE | 2020-07-06 19:58 | NUR ---
PT. ARRIVED TO THE FLOOR AROUND CLOSE TO 1700; PT. AOX4; DROWSY; ST. NOT HAVING A LIST OF MEDICATIONS; GOING THROUGH HOME MEDS; PT. DROWSY; IV FLUIDS CONTINUE; EDUCATED ABOUT FALL PRECAUTIONS; ST. UNDERSTANDING; SR ON THE MONITOR; ADMISSION COMPLETED; ASSESSMENT CHARGED; FOLLOWING POC; PASSED ON REPORT;
[2020-07-07 00:09] VITALS: BP 130/66
[2020-07-07 04:11] VITALS: BP 132/51
--- NOTE | 2020-07-07 05:45 | NUR ---
ASSESSMENTS CHARTED, MEDS CHARTED GIVEN. PATIENT RESTING IN BED DURING SHIFT. DENIED PAIN. FALL PRECAUTIONS IN PLACE DURING SHIFT. UP WITH ASSIST TO BEDSIDE COMMODE. PLAN OF CARE IS TO GO TO REHAB WHEN STABLE THE PATIENT LIVES ALONE.
[2020-07-07 06:40] LABS: CALCIUM 9.1 mg/dL (8.5-10.1); CREATININE 0.9 mg/dL (0.6-1.0)
[2020-07-07 06:43] LABS: POTASSIUM 4.1 mmol/L (3.5-5.1)
[2020-07-07 07:15] VITALS: BP 148/78
--- NOTE | 2020-07-07 09:42 | NUR ---
INITIAL ASSESSMENT: ALISTAIR reviewed chart and spoke with attending physician. Pt was admitted from home due to syncope/anemia. Pt was recently hospitalized and discharged home with [facility] on 07/02. Pt has had several falls at home since discharge. ALISTAIR spoke with pt via phone. Introduced role of ALISTAIR. Pt is alert/orientated x 4. Pt known to SW from previous hospitalizations. Pt lives alone in a ground level apt. No stairs to navigate. Pt has a roller walker and home O2 through [employer]. Pt has been to [facility] (2019) and [facility] (2019). ALISTAIR discussed discharge plans with pt and recommendation for pt to go to SNF for continued rehab services and medical mgmt. Pt's family is in the process of moving pt into an [place] facility [place]. Pt is agreeable with referral to [facility] and for admission if pt is accepted. Pt gave consent for SW to contact her son, Manolo, to further discuss discharge plans. ALISTAIR spoke with Manolo via phone to provide update. Manolo and pt's family are all agreeable with pt going to SNF upon discharge. Discharge is anticipated for tomorrow. ALISTAIR faxed SNF referral to [facility] and notified admissions liaison. Pt had COVID positive test on 06/15. Pt no longer requires isolation. [facility] does not require a COVID test prior to admission to their facility. Pt has 59 skilled days available. ALISTAIR updated attending physician. ALISTAIR is following to assist as needed with discharge planning.
--- NOTE | 2020-07-07 15:34 | EKG ---
[address] [place] [address] ELECTROCARDIOGRAM REPORT Name: JOSE A SURESH Room #: 203-P ADM IN M.R.#: [id number] Admission: 07/06/20 Attend Phys: Con Urias MD Discharge: Date of : 40 Report #: [id number] [facility] Test Date: 2020-07-07 Test Time: 14:30:27 Pat Name: JOSE A SURESH Department: Room: 203 P Gender: F Universal Banker: Flip GROVES : 1940 Requested By: Con Urias Order Number: [id number] MD: Dieudonne Amaro Measurements Intervals [place] Rate: 87 P: 66 CO: 198 QRS: -14 QRSD: 144 T: 44 QT: 435 QTc: 524 Interpretive Statements Sinus rhythm Probable left ventricular hypertrophy Anterior Q waves, possibly due to LVH Prolonged QT interval Compared to ECG 07/06/2020 08:53:03 Left ventricular hypertrophy now present Q waves now present Prolonged QT interval now present Myocardial infarct finding no longer present Electronically Signed On 07-07-2020 15:34:32 FOOD PRODUCTION MANAGER by Dieudonne Amaro [email or web address] <ELECTRONICALLY SIGNED> By: Dieudonne Amaro MD 07/07/20 1534 1430 1430 Dieudonne Amaro MD /EPI
[2020-07-07 19:46] VITALS: BP 130/62
--- NOTE | 2020-07-07 20:21 | NUR ---
RECEIVED PT'S CARE AROUND 0743; PT. ON BED; ALERT; DURING AM ASSESSMENT SLEEP INTERRUPTED; AM MEDICATIONS GIVEN; REMAINED ABOU THE IMPORTANCE OF TAKING MEDICATION AFTER REFUSING AM MEDICATIONS; ST. UNDERSTANDING; MEDICATION TAKEN; ST ON THE MONITOR WITH EXERTION; PER PT. PT. ABLE TO GET OFF BED BY HERSELF TO THE BED SIDE COMMODE; PT. EDUCATED ABOUT WEARING SUCKS WHILE GETTING UP; ST. "I PROBABLY DO NOT HAVE TIME"; REMAINED ABOUT FALL PRECAUTIONS; REQUESTED PRN PAIN MEDICATION; WHEN BACK WITH MEDICATION PT. RESTING WITH EYES CLOSED; URINE CULTURE BACK; PHYSICIAN NOTIFIED; ORDERS RECEIVED; PT. SOB WHEN UP TO THE COMMODE; PHYSICIAN NOTIFIED; ORDRES ON PLACED; PT. GONE FOR CT DURING THE AFTERNOON; ASSESSMENT CHARGED; FOLLOWING POC; PASSED ON REPORT;
[2020-07-08 03:47] VITALS: BP 141/68
[2020-07-08 05:25] LABS: INR 1.2; PROTIME 12.8 Seconds (9.3-11.4)
[2020-07-08 08:06] VITALS: BP 124/59
--- NOTE | 2020-07-08 09:19 | NUR ---
ALISTAIR reviewed chart and spoke with attending physician. Pt is not ready for discharge to [facility] today. Pt may need a thoracentesis. Discharge is anticipated in 1-2 days. Pt is on IV steroids. SW updated [facility] liaison. [facility] is able to accept pt when ready for discharge. ALISTAIR spoke with pt via phone to provide update and confirm discharge plan. Pt is agreeable and will update her son, Manolo. ALISTAIR is following to assist as needed with discharge planning.
[2020-07-08 11:21] LABS: CLARITY HAZY; COLOR AMBER; SOURCE THORACENTESIS; TOTAL VOLUME 60 mL
[2020-07-08 12:08] VITALS: BP 118/65
[2020-07-08 12:43] LABS: BF NUCLEATED CELLS 188 /mm3; BF RBC 7021 /mm3
--- NOTE | 2020-07-08 13:47 | NUR ---
FAXED CLINICAL UPDATE TO [facility] SPOKE WITH EFREN IN ADM SHE RECEIVED UPDATE.
[2020-07-08 16:30] VITALS: BP 142/63
[2020-07-08 20:06] VITALS: BP 98/58
--- NOTE | 2020-07-08 20:35 | NUR ---
ASSESSMENT CHARTED- MEDS PER AUG - GIVEN TRAMADOL FOR CO'S OF HEADACHE WITH GOOD RELIEF -PT WOTH CO'S OF RESTLESS LEGS - GIVEN MUSCEL RELAXER AND PATIENT THEN HAD LOW BP 81/59 - DR NOTIFIED AND BOLUS OF 500 CC OF NS GIVEN. PT BP BEETER BUT REMAINED SOFT. PT HAD THORACENTISIS PERFOEMD THIS AM - 1 LEGTER OF FLUIDS REMOVED - PATIENT WITH NO RESP DIFFICULTIES NOTED. PT WITH CO'S OF STUFFY NOSE - DR NOTIFIED AND FLONASE ORDERED FOR PATIENT. PT UP TO THE BSC TO VOID. YESSI DIET AND FLUIDS. NO CO'S AT THE PRESENT TIME.
[2020-07-09 00:56] VITALS: BP 121/59
[2020-07-09 04:51] VITALS: BP 121/52
[2020-07-09 05:09] LABS: MCHC 29.7 g/dL (28.0-37.0)
[2020-07-09 05:11] LABS: HEMATOCRIT 22.2 % (37.0-47.0); HEMOGLOBIN 6.6 gm/dL (12.0-15.0); MCH 25.4 pg (26.0-34.0); MCV 85.5 fL (80.0-100.0); RBC 2.6 mil/uL (4.20-5.00); RDW 19.2 % (10.5-14.5); WBC 5.8 thou/uL (4.0-11.0)
[2020-07-09 05:45] LABS: CALCIUM 8.2 mg/dL (8.5-10.1); CREATININE 0.7 mg/dL (0.6-1.0)
[2020-07-09] MEDS ORDERED: CIPROFLOXACIN250 M2 PO (07:46)
[2020-07-09] MEDS ORDERED: FLONASE 0.05%50 MCG NASAL (07:47)
[2020-07-09] MEDS ORDERED: TRIAMCINOLONE A80 G2 TOP (07:47)
[2020-07-09] MEDS ORDERED: PREDNISONE 5 MG5 M1 PO (07:49)
--- NOTE | 2020-07-09 07:51 | NUR ---
ASSUMED PATIENT CARE AT 1845. VITAL SIGNS STABLE WITH PATIENT HAVING NO COMPLAINTS OF NAUSEA. PATIENT DID COMPLAIN OF PAIN WHICH WAS TREATED APPROPRIATELY THROUGH MEDICATIONS. BREATHING STABLE ON OXYGEN EVIDENCED BY ASSESSMENTS AND SPOT OXYGENATION CHECKS. UP MULTIPLE TIMES TO BATHROOM WITH ASSISTANCE INCIDENT FREE. CONTINUE PLAN OF CARE.
[2020-07-09 08:35] VITALS: BP 111/55
--- NOTE | 2020-07-09 09:17 | NUR ---
DISCHARGE NOTE: ALISTAIR reviewed chart and spoke with nursing. Discharge orders/summary completed this morning. Pt to have unit of blood prior to discharge and will need hemoglobin checked prior to discharge. Pt would be ready for discharge later this afternoon. ALISTAIR faxed d/c ppwk to [facility] and notified liaison of orders. W/c van transportation tentatively scheduled for 1500 this afternoon. Can be pushed back if needed. ALISTAIR spoke with pt via phone to discuss discharge. Pt is agreeable wt plan. ALISTAIR spoke with pt's son, Manolo, to provide update and discuss discharge. Manolo is also agreeable with d/c plan. Chart copy requested. Pt's nurse will need to call report to [facility]. ALISTAIR is following to finalize discharge. [facility]--
[2020-07-09 10:05] VITALS: BP 111/55
[2020-07-09 11:07] LABS: BODY FLUID ALBUMIN 0.9 g/dL (Not Estab.); BODY FLUID AMYLASE 17 U/L (()); BODY FLUID GLUCOSE 137 mg/dL (()); BODY FLUID LDH 79 IU/L (()); BODY FLUID PROTEIN 1.4 g/dL (())
--- NOTE | 2020-07-09 12:42 | NUR ---
VAT CALLED FOR LINE FOR BLOOD. MYKE CEPHALIC WIDELY PATENT BUT DEEP. DISCUSSED MIDLINE WITH PT, VERBALIZED CONSENT. 4FR POWER ML TRIMMED TO 10CM INSERTED TO 0CM. PT TOLERATED WELL. ML RELEASED FOR IMMEDIATE USE PER PROTOCOL TO DILLON SHAH
[2020-07-09 12:59] VITALS: BP 123/58; BP 142/71
[2020-07-09 15:47] VITALS: BP 142/71
--- NOTE | 2020-07-10 14:07 | PATH ---
[facility] [address] [place] [address] PATHOLOGY RPT PROCEDURE Name: JOSE A SURESH Room #: 203-P [facility] IN M.R.#: [id number] Admission: 07/06/20 Date of : 40 Discharge: 07/09/20 Report #: [id number] Path Case #: [id number] Note [facility] Accession Number: [id number] TESTS RESULT FLAG UNITS REF RANGE LAB Clinician Provided Cytology Information No. of containers..01 Other (Miscellaneous) Source: RIGHT PLEURAL FLUID DIAGNOSIS: 02 RIGHT PLEURAL FLUID NEGATIVE FOR MALIGNANT EPITHELIAL CELLS. REACTIVE MESOTHELIAL CELLS ARE PRESENT. THIS INTERPRETATION INCLUDES EVALUATION OF A CELL BLOCK. Pathologist ICD10: 02 J90 Signed out by: 02 Diane Rivera MD, Pathologist NPI- [id number] Performed by: Aissatou Han, Boiler Room Helper ([facility]) Gross description: 01 27ML, ORANGE/RED, 1TP 1CB /LCS 07/09/2020 0731 Local FLAG LEGEND: L-Low Normal,H-High Normal,LL-Alert Low,HH-Alert High <-Panic Low,>-Panic High,A-Abnormal,AA-Critical Abnormal Performed at: [address] [place] [address] Jose D Jarvis MD, [address] [address] Diane Rivera MD, Specimen Comment: A courtesy copy of this report has been sent to [phone] Specimen Comment: Report sent to DR DUBOIS Specimen Comment: A duplicate report has been generated due to demographic updates. Performed at: [address], [place], [place] [id number] MD Jose D Jarvis MD Phone: [phone]
[2020-07-11 09:56] LABS: SOURCE CHEST
[2020-07-11 10:23] LABS: BF MACROPHAGE 76 %; BF NEUTROPHILS 7 %
== END 2020-07-09 17:03 | DRG 682 ==
LOC: ER 08:52 → EROBS 10:56 → 2N 10:56
PROVIDERS: Emergency Medicine; ADMIT Family Medicine; ATTEND Family Medicine
PROC: 0W993ZZ Drainage of Right Pleural Cavity, Percutaneous Approach (ICD-10-PCS; principal; 2020-07-08)
PROC: 05HF33Z Insertion of Infusion Device into Left Cephalic Vein, Percutaneous Approach (ICD-10-PCS; 2020-07-09)
PROC: 30233N1 Transfusion of Nonautologous Red Blood Cells into Peripheral Vein, Percutaneous Approach (ICD-10-PCS; 2020-07-09)
DX: N17.0 Acute kidney failure with tubular necrosis (principal); J96.01 Acute respiratory failure with hypoxia; I13.0 Hypertensive heart and chronic kidney disease with heart failure and stage 1 through stage 4 chronic kidney disease, or unspecified chronic kidney disease; N39.0 Urinary tract infection, site not specified; J91.8 Pleural effusion in other conditions classified elsewhere; R55 Syncope and collapse; I50.9 Heart failure, unspecified; Z60.2 Problems related to living alone; E78.5 Hyperlipidemia, unspecified; I25.10 Atherosclerotic heart disease of native coronary artery without angina pectoris; J43.9 Emphysema, unspecified; N18.9 Chronic kidney disease, unspecified; I95.9 Hypotension, unspecified; D64.9 Anemia, unspecified; Z85.3 Personal history of malignant neoplasm of breast; Z88.0 Allergy status to penicillin; Z86.12 Personal history of poliomyelitis; Z87.891 Personal history of nicotine dependence; Z79.899 Other long term (current) drug therapy
CPT/HCPCS: 10081; 27000

== ENCOUNTER 2020-07-12 23:20 | Inpatient (IN) | payer OTHER, MEDICARE ==
[~2020-07-12] VITALS: Ht 165.1 cm; Wt 89.4 kg
[~2020-07-12 23:20] MED LIST changes: +CIPROFLOXACIN250 M2 PO; +FLONASE 0.05%50 MCG NASAL; +PREDNISONE 5 MG5 M1 PO; +TRIAMCINOLONE A80 G2 TOP
[2020-07-12 23:21] VITALS: BP 124/60
[2020-07-12] MEDS ORDERED: ALBUTEROL2.5 MG/3 M INH (23:36)
[2020-07-12] MEDS ORDERED: XANAX 0.5 MG0.5 MG PO (23:37)
[2020-07-12] MEDS ORDERED: LIPITOR40 MG PO (23:38)
[2020-07-12] MEDS ORDERED: ASA81BEC PO (23:38)
[2020-07-12] MEDS ORDERED: CIPRO250 M2 PO (23:39)
[2020-07-12] MEDS ORDERED: PLAVIX 75 MG TA75 MG PO (23:39)
[2020-07-12] MEDS ORDERED: FLONASE 0.05%50 MCG NASAL (23:39)
[2020-07-12] MEDS ORDERED: IPRAT-ALBUT 0.5-3 ML INH (23:40)
[2020-07-12] MEDS ORDERED: LISINOPRIL20 MG PO (23:40)
[2020-07-12] MEDS ORDERED: MYSOLINE50 MG PO (23:41)
[2020-07-12] MEDS ORDERED: MELATONIN5 MG SUBLING (23:41)
[2020-07-12] MEDS ORDERED: TIZANIDINE HCL4 M1 PO (23:42)
[2020-07-12] MEDS ORDERED: ULTRAM50 MG PO (23:42)
[2020-07-12] MEDS ORDERED: PULMICORT0.5 MG/22 INH (23:42)
[2020-07-12] MEDS ORDERED: TRIAMCINOLONE A15 G1 TOP (23:44)
[2020-07-12] MEDS ORDERED: VERAPAMIL HCL40 MG PO (23:45)
[2020-07-13 00:41] LABS: ABSOLUTE NEUTROPHILS 8.1 thou/uL (1.4-8.2); BASOPHILS 0.5 % (0.0-2.0); EOSINOPHILS 3.3 % (0.0-3.0); HEMATOCRIT 27.4 % (37.0-47.0); HEMOGLOBIN 8.1 gm/dL (12.0-15.0); MCH 25.6 pg (26.0-34.0); MCHC 29.6 g/dL (28.0-37.0); MCV 86.5 fL (80.0-100.0); PLATELET COUNT 219 thou/uL (150-400); POLYS 76.2 % (36.0-66.0); RBC 3.17 mil/uL (4.20-5.00); RDW 19.3 % (10.5-14.5); WBC 10.6 thou/uL (4.0-11.0)
[2020-07-13 00:55] LABS: CALCIUM 9.1 mg/dL (8.5-10.1); CREATININE 0.6 mg/dL (0.6-1.0); POTASSIUM 3.9 mmol/L (3.5-5.1)
[2020-07-13 01:00] LABS: ALBUMIN 2.7 g/dL (3.4-5.0); DIRECT BILIRUBIN 0.1 mg/dL (<0.1-0.2); TOTAL BILIRUBIN 0.3 mg/dL (0.2-1.0); TOTAL PROTEIN 5.4 g/dL (6.4-8.2); TROPONIN-I 0.06 ng/mL (<0.06)
[2020-07-13 01:06] LABS: APTT 26.1 Seconds (24.5-32.8); INR 1.1; PROTIME 11.4 Seconds (9.3-11.4)
[2020-07-13 02:39] LABS: URINE BILIRUBIN NEGATIVE (Negative); URINE BLOOD NEGATIVE (Negative); URINE CLARITY CLEAR; URINE COLOR YELLOW; URINE GLUCOSE-RANDOM* NEGATIVE (Negative); URINE KETONES NEGATIVE (Negative); URINE LEUKOCYTES-REFLEX NEGATIVE (Negative); URINE NITRITE-REFLEX NEGATIVE (Negative); URINE PROTEIN (DIPSTICK) NEGATIVE (Negative); URINE UROBILINOGEN 0.2 E.U./dl (0.2-1.0)
--- NOTE | 2020-07-13 06:41 | NUR ---
DR DUBOIS ANSWERING SERVICE CONTACTED TO OBTAIN DIET ORDER FOR PT
--- NOTE | 2020-07-13 07:45 | EKG ---
[address] [address] [facility] [facility] [place] [address] ELECTROCARDIOGRAM REPORT Name: JOSE A SURESH Room #: 170-8 ADM IN M.R.#: [id number] Admission: 07/13/20 Attend Phys: Con Urias MD Discharge: Date of : 40 Report #: [id number] [facility] ED Test Date: 2020-07-12 Test Time: 23:45:37 Pat Name: JOSE A SURESH Department: Room: 170 Gender: F Meter Installer And Remover: ELISSA : 1940 Requested By: Kandis Medrano Order Number: [id number] MD: Zaid Marshall Measurements Intervals [place] Rate: 104 P: 39 GA: 173 QRS: -16 QRSD: 147 T: 154 QT: 352 QTc: 463 Interpretive Statements Sinus tachycardia Left bundle branch block No previous ECG available for comparison Electronically Signed On 07-13-2020 7:44:56 PLANT AND MAINTENANCE TECHNICIAN by Zaid Marshall [email or web address] <ELECTRONICALLY SIGNED> By: Zaid Marshall MD, [facility] 07/13/20 0744 2345 2345 Zaid Marshall MD, FACC /EPI
[2020-07-13 08:30] VITALS: BP 148/76
[2020-07-13 12:30] VITALS: BP 110/65
--- NOTE | 2020-07-13 15:07 | NUR ---
79 year old female presents with burning pain from the LUQ radiating down the L lateral abdomen x2 days, exacerbated by eating. She also has had emesis with PO intake all day today, approximately 5 times in total. She states the emesis appears bloody and is brown in color. The patient last discharged from [facility] on 07-09-20 to [facility]. The patient has been admitted to Dr. Urias for: Abdominal pain, Acute respiratory distress, Recurrent Right Plural effusion, CHF, COPD, COVID infection (last positive test on 06-05-2020 ), Anemia of chronic disease. Plan is to do a thoracentesis and do albumin testing prior, breathing treatment and possible return to skilled care in 1-3 days upon conferring with the attending. The patients son Manolo Friedman is the main contact at [phone]. Manolo would like to speak with Dr. Urias and realizes how busy the hospital rounds can be. Gave manolo the phone number of [phone] to call and leave a message for the doctor to return his call at this office number. Notified Dr. Urias and stated he will round between 7:15 to 8:00 on 07-14-20. Called Manolo back and he will be on the unit to meet with the MD at that time. CM will continue to follow for discharge needs.
[2020-07-13 16:00] VITALS: BP 115/68
[2020-07-13 16:47] VITALS: BP 110/65
[2020-07-13 18:15] VITALS: BP 116/49
--- NOTE | 2020-07-13 18:26 | NUR ---
ASSUMED CARE AT 1715. PATIENT ARRIVED TO CCU AT 1715 ON 4 L NC. ORIENTED TO UNIT. ST PER TELE. NO C/O SOA OR CP.
[2020-07-13 20:27] VITALS: BP 116/55
[2020-07-14] VITALS (7 sets, daily range): BP systolic 81–142; BP diastolic 48–75
--- NOTE | 2020-07-14 03:39 | NUR ---
Assumed pt care at 1900. Pt is sleping upon arrival to room but does wake up for assessment. Pt is alert and oriented. No sign of distress noted. Fall precaution in place. Assessment completed and documented. Scheduled meds administered to pt. Vebalized pain, pain meds administered. No acute events overnight. Continue to monitor. No further needs at this time.
[2020-07-14 07:21] LABS: HEMATOCRIT 26.5 % (37.0-47.0); HEMOGLOBIN 7.9 gm/dL (12.0-15.0); MCH 26.1 pg (26.0-34.0); MCHC 29.8 g/dL (28.0-37.0); MCV 87.6 fL (80.0-100.0); RBC 3.02 mil/uL (4.20-5.00); RDW 19.8 % (10.5-14.5); WBC 9.4 thou/uL (4.0-11.0)
[2020-07-14 07:33] LABS: CALCIUM 9.5 mg/dL (8.5-10.1); CREATININE 0.6 mg/dL (0.6-1.0); POTASSIUM 4.3 mmol/L (3.5-5.1)
--- NOTE | 2020-07-14 10:12 | NUR ---
CONSULT [id number] COMPLETED BY THIS MAJOR LEAGUE BASEBALL UMPIRE.
--- NOTE | 2020-07-14 16:42 | NUR ---
ASSUMED CARE OF PT AT SHIFT CHANGE. ASSESSMENTS CHARTED. MEDS GIVEN PER AUG. PT A&OX4, C/O PAIN TREATED WITH PO MEDS WITH PARTIAL RELIEF. NO SOA OR DISTRESS NOTED. POSSIBLE DC TOMORROW BACK TO REHAB FACILITY. WILL CONTINUE TO MONITOR AND FOLLOW POC.
--- NOTE | 2020-07-14 16:52 | NUR ---
PT CAME FROM [facility] FAXED CLINICAL UPDATE TO FACILITY RECEIVED CONFIRMATION AND LEFT MSG WITH EFREN IN ADM. DP TO FOLLOW.
[2020-07-15 04:47] VITALS: BP 137/73
[2020-07-15 08:15] VITALS: BP 119/60
[2020-07-15 08:25] LABS: HEMATOCRIT 26.3 % (37.0-47.0); HEMOGLOBIN 7.7 gm/dL (12.0-15.0); MCH 25.6 pg (26.0-34.0); MCHC 29.3 g/dL (28.0-37.0); MCV 87.2 fL (80.0-100.0); RBC 3.02 mil/uL (4.20-5.00); RDW 20.2 % (10.5-14.5); WBC 8.8 thou/uL (4.0-11.0)
[2020-07-15 08:48] LABS: CALCIUM 9.3 mg/dL (8.5-10.1); CREATININE 0.7 mg/dL (0.6-1.0); POTASSIUM 4.1 mmol/L (3.5-5.1)
[2020-07-15 11:10] VITALS: BP 121/81
--- NOTE | 2020-07-15 12:54 | NUR ---
RECEIVED PT'S CARE AROUND 0725; PT. ALERT; DURING AM ASSESSMENT PT. AOX4; NO C/O PAIN; NOTICED BREATHING LABORED; IV LASIX GIVEN ONE TIME; AM MEDICATION GIVEN; EDUCATED ABOUT FALL PRECAUTIONS; ST. UNDERSTANDING; ST ON THE MONITOR; DURING THE AFTERNOON NOTICED; IMPROVE BREATHING; ST. "FEELING BETTER"; D/C ORDERS ON PLACED; PER MEDICAL LIBRARY ASSISTANT TRANSPORTATION ARRANGE AT 1400; PT. NOTIFIED; ASSESSMENT CHARGED; FOLLOWING POC; WILL CALL TO GIVE REPORT; WILL WORK ON D/C ORDERS;
--- NOTE | 2020-07-15 13:14 | NUR ---
DISCHARGE SUMMARY FAXED TO [facility]. F:[phone]; P:[phone].
== END 2020-07-15 14:18 | DRG 291 ==
LOC: ER 23:20 → EROBS 07-13 02:38 → 2N 07-13 02:38
PROVIDERS: Emergency Medicine; ADMIT Family Medicine; ATTEND Family Medicine
PROC: 0W993ZZ Drainage of Right Pleural Cavity, Percutaneous Approach (ICD-10-PCS; principal; 2020-07-13)
DX: I11.0 Hypertensive heart disease with heart failure (principal); J96.00 Acute respiratory failure, unspecified whether with hypoxia or hypercapnia; E43 Unspecified severe protein-calorie malnutrition; J98.11 Atelectasis; J91.8 Pleural effusion in other conditions classified elsewhere; J96.10 Chronic respiratory failure, unspecified whether with hypoxia or hypercapnia; I50.23 Acute on chronic systolic (congestive) heart failure; J44.9 Chronic obstructive pulmonary disease, unspecified; F32.9 Major depressive disorder, single episode, unspecified; D63.8 Anemia in other chronic diseases classified elsewhere; Z86.16 Personal history of COVID-19; F41.1 Generalized anxiety disorder; E78.5 Hyperlipidemia, unspecified; G40.909 Epilepsy, unspecified, not intractable, without status epilepticus; Z85.3 Personal history of malignant neoplasm of breast; Z99.81 Dependence on supplemental oxygen; Z79.899 Other long term (current) drug therapy; Z79.51 Long term (current) use of inhaled steroids; Z88.0 Allergy status to penicillin
CPT/HCPCS: 10081

== ENCOUNTER 2020-07-29 12:39 | Inpatient (IN) | payer OTHER, MEDICARE ==
[~2020-07-29] VITALS: Ht 165.1 cm; Wt 92.5 kg
[~2020-07-29 12:39] MED LIST changes: +ALBUTEROL2.5 MG/3 M INH; +CIPRO250 M2 PO; +LISINOPRIL20 MG PO; +MELATONIN5 MG SUBLING; +MYSOLINE50 MG PO; +PLAVIX 75 MG TA75 MG PO; +PULMICORT0.5 MG/22 INH; +TIZANIDINE HCL4 M1 PO; +TRIAMCINOLONE A15 G1 TOP; +VERAPAMIL HCL40 MG PO; +XANAX 0.5 MG0.5 MG PO
[2020-07-29 12:42] VITALS: BP 125/43
[2020-07-29 14:03] LABS: ABSOLUTE NEUTROPHILS 4.7 thou/uL (1.4-8.2); BASOPHILS 0.7 % (0.0-2.0); HEMATOCRIT 24.6 % (37.0-47.0); HEMOGLOBIN 7.3 gm/dL (12.0-15.0); LYMPHOCYTES 13.9 % (24.0-44.0); MCH 26.1 pg (26.0-34.0); MCHC 29.7 g/dL (28.0-37.0); MONOCYTES 12.3 % (1.0-8.0); PLATELET COUNT 220 thou/uL (150-400); POLYS 71.1 % (36.0-66.0); RDW 21.8 % (10.5-14.5); WBC 6.6 thou/uL (4.0-11.0)
[2020-07-29 14:10] LABS: ANION GAP 1 mmol/L (7-16); BUN 28 mg/dL (7-18); CHLORIDE 102 mmol/L (98-107); CO2 38 mmol/L (21-32); CREATININE 1.1 mg/dL (0.6-1.0); GLUCOSE 97 mg/dL (74-106); POTASSIUM 4.4 mmol/L (3.5-5.1); SODIUM 141 mmol/L (136-145)
[2020-07-29 14:14] LABS: APTT 25.9 Seconds (24.5-32.8); INR 1.1; PROTIME 11.2 Seconds (9.3-11.4)
[2020-07-29 14:16] LABS: ALBUMIN 3.2 g/dL (3.4-5.0); DIRECT BILIRUBIN < 0.1 mg/dL (<0.1-0.2); LIPASE 156 U/L (73-393); SGOT 33 U/L (15-37); SGPT 24 U/L (30-65); TOTAL BILIRUBIN 0.6 mg/dL (0.2-1.0); TOTAL PROTEIN 6.8 g/dL (6.4-8.2)
[2020-07-29] MEDS ORDERED: LASIX 40 MG TAB40 MG PO (15:15)
[2020-07-29] MEDS ORDERED: KLOR-CON 10 ER10 MEQ PO (15:15)
[2020-07-29 18:20] VITALS: BP 125/62
[2020-07-29 19:56] LABS: ANISOCYTOSIS 2+; MICROCYTES 1+; OVALOCYTES 1+; TARGET CELLS 1+
[2020-07-29 19:57] LABS: POIKILOCYTOSIS 1+; POLYCHROMASIA 1+; SCHISTOCYTES OCCASIONAL
[2020-07-29 21:35] VITALS: BP 123/70
[2020-07-29 23:55] VITALS: BP 124/65
[2020-07-30 00:11] VITALS: BP 111/61; BP 117/61; BP 131/66; BP 133/64
[2020-07-30] MEDS ORDERED: LORATIDINE 10 M10 M1 PO (02:16)
[2020-07-30 04:18] VITALS: BP 132/75
--- NOTE | 2020-07-30 04:49 | NUR ---
PT ADMITTED TO ROOM 201 FROM ER FOR ANEMIA AND SOA, WITH CHF EXERCDEBATION, PT IS AWKE, ALERT AND ORIENTEDX4, ST ON THE MONITOR WITH RUNS OF PVCS, ADMITTION ASESSMENT DONE AND CHARTED, CONSENT FORMS SIGNED, PT IS STABLE ON 2L NC, GIVEN XANAX, VSS, 1 PACKED RBCS TRANFUSED, NO REACTION NOTED, RECHECK H&H PENDING, PT RESTING IN BED, DENIES HAVING CONCERNS, WILL CONTINUE TO MONITOR, WILL PASS ON REPORT
[2020-07-30 05:00] LABS: HEMATOCRIT 28.5 % (37.0-47.0); HEMOGLOBIN 8.7 gm/dL (12.0-15.0)
--- NOTE | 2020-07-30 07:16 | EKG ---
[address] [address] [facility] [place] [address] ELECTROCARDIOGRAM REPORT Name: JOSE A SURESH Room #: 201-P ADM IN M.R.#: [id number] Admission: 07/29/20 Attend Phys: Con Urias MD Discharge: Date of : 40 Report #: [id number] [facility] ED Test Date: 2020-07-29 Test Time: 13:37:59 Pat Name: JOSE A SURESH Department: Room: 201 Gender: F Brothel Keeper: VIRGIL : 1940 Requested By: Charli North Order Number: [id number] : Donald Silvestre Measurements Intervals [place] Rate: 109 P: 104 ID: [id number] QRS: 48 QRSD: 86 T: -63 QT: 312 QTc: 421 Interpretive Statements Bigeminy Atrial premature complex Low voltage, precordial leads Baseline wander in lead(s) V1 Compared to ECG 07/12/2020 23:45:37 Atrial premature complex(es) now present Low QRS voltage now present Electronically Signed On 07-30-2020 7:15:[address] REPORTER by Donald Silvestre [email or web address] <ELECTRONICALLY SIGNED> By: Donald Silvestre MD, FAC 07/30/20 0715 1337 1337 Donald Silvestre MD, [facility] /EPI
[2020-07-30 07:58] VITALS: BP 114/54
[2020-07-30 08:00] VITALS: BP 129/76
[2020-07-30 08:20] VITALS: BP 105/72
[2020-07-30 08:21] LABS: CALCIUM 8.7 mg/dL (8.5-10.1); POTASSIUM 4.1 mmol/L (3.5-5.1)
[2020-07-30 08:33] LABS: CREATININE 2.4 mg/dL (0.6-1.0)
[2020-07-30 11:52] VITALS: BP 117/68
--- NOTE | 2020-07-30 17:16 | NUR ---
ASSUMED CARE OF PT AT SHIFT CHANGE. ASSESSMENTS CHARTED. MEDS GIVEN PER AUG. PT A&OX4, NO C/O PAIN. PT ON 2L NC WITH NO C/O DISTRESS. PT TRANSPORTED VIA WHEELCHAIR TO ULTRASOUND FOR SCAN OF BLE. WHEN THIS NURSE WAS ALERTED OF PT LOW HR, THIS NURSE CALLED US TO CHECK STATUS OF PT. US REPORTED SHE WAS ON A CART BEING TRANSPORTED BACK TO ROOM. THIS NURSE HUNG UP PHONE HEARD TRANSPORT STAFF YELLING FOR HELP THEY ENTERED THE UNIT. PT WAS UNRESPONSIVE WITH NO PALPABLE PULSE. CODE WAS CALLED, COMPRESSIONS BEGAN. COMPRESSION PROCEEDED FOR APPROX 30 SECS WHEN THIS NURSE REMEMBERED PT WAS DNR, ASKED SON WHO WAS IN THE ROOM WHAT HE WANTED TO DO. HE REPLIED "LET HER GO". COMPRESSIONS STOPPED. DR. NOYOLA CALLED TIME OF 1445. DR. DUBOIS THEN CAME IN, AGREED WITH TIME OF AND SPOKE WITH SON FOR A SHORT TIME. PACKET WAS COMPLETED. AFTER SON LEFT, POSTMORTEM WAS PERFORMED BY THIS NURSE AND AN AID. SECURITY WAS CALLED TO TAKE PT TO [facility].
--- NOTE | 2020-07-31 08:27 | NUR ---
LATE NOTE: THIS AUTO PARTS COUNTER PERSON WAS NOTIFIED OF . THIS AUTO PARTS COUNTER PERSON ARRIVED AND SPENT TIME WITH THE PATIENT'S SON. HE WAS VERY GRATEFUL FOR THE CARE HIS MOTHER WAS GIVEN. HE WAS APPRECIATIVE FOR THE AUTO PARTS COUNTER PERSON VISIT AND PRAYER JUST SHORTLY BEFORE HER EVENTUAL . WE DID LIFE REVIEW AND DISCUSSED HER STRONG FERNANDO. SON WAS APPRECIATIVE SHE WAS FINALLY ABLE TO GO MEET HER LORD AND SAVIOR. WE CONCLUDED IN PRAYER.
--- NOTE | 2020-07-31 11:27 | HC ---
[facility] [place] [address] CONSULTATION Name: JOSE A SURESH Room #: 201-P [facility] M.R.#: [id number] Admission: 07/29/20 Attend Phys: Con Urias MD Discharge: 07/30/20 Date of : 40 Report #: [id number] THIS REPORT FOR: cc: Con Urias MD, Neal A. MD [place] ~ DATE OF SERVICE: 07/30/2020 WOUND CARE CONSULTATION PERSONAL PHYSICIAN: Con Urias MD CHIEF COMPLAINT: Lower extremity cellulitis. HISTORY OF PRESENT ILLNESS: This is a 79-year-old white female who had been asked to see for bilateral lower extremity cellulitis and swelling. The patient supposedly was admitted for symptomatic anemia. The patient had a recent COVID-19 infection. The patient denies any other associated wounds. The patient states she does have mild chronic edema, bilateral lower extremities. The patient is currently admitted to rehab facility for recent community-acquired pneumonia. The patient denies any other associated wounds. PAST MEDICAL HISTORY: Significant for congestive heart failure, COPD, hypertension, hyperlipidemia, generalized debility secondary to recent COVID-19 infection. CURRENT MEDICATIONS: Multiple, I reviewed the patient's medication list. DRUG ALLERGIES: PENICILLIN. SOCIAL HISTORY: The patient smokes half pack of cigarettes daily, occasionally smokes marijuana. Is currently in a rehab facility. FAMILY ISTORY: Not pertinent to current medical condition. REVIEW OF SYSTEMS: CONSTITUTIONAL: The patient denies fevers or chills. NEUROLOGIC: The patient with overall generalized weakness, but denies isolated weakness in arms or legs. EYES: No complaints. ENT: No complaints. CARDIAC: The patient has chronic mild lower extremity edema. Denies chest pain or palpitation. RESPIRATORY: The patient has mild shortness of breath with associated cough, but no wheezes. [facility] [address] [place] [address] CONSULTATION Name: JOSE A SURESH Room #: 201-P [facility].#: [id number] Admission: 07/29/20 Attend Phys: Con Urias MD Discharge: 07/30/20 Date of : 40 Report #: [id number] GASTROINTESTINAL: The patient denies nausea, vomiting or abdominal pain. GENITOURINARY: The patient denies urgency or frequency. MUSCULOSKELETAL: No complaints. SKIN: The patient has stasis dermatitis changes to bilateral lower extremities. PHYSICAL EXAMINATION: VITAL SIGNS: Stable. The patient is afebrile. GENERAL: This is an alert and oriented x 3, pleasant white female who is in no obvious distress. HEENT: Normocephalic, atraumatic. Mucous membranes are somewhat dry. Pupils are round. Sclerae white. NECK: Without JVD. LUNGS: Slight diminished breath sounds throughout. Occasional scattered wheeze. HEART: Regular. ABDOMEN: Soft, nontender. EXTREMITIES: The patient has 1+ edema bilateral lower extremities with stasis dermatitis changes and increased erythema and warmth in bilateral lower extremities, but no signs of any open ulcerations. Distal neurovascular is intact. Bilateral heels are intact. NEUROLOGIC: Cranial nerves 2-12 grossly intact. Motor and sensory grossly intact. LABORATORY DATA: White count 6.6, hemoglobin 7.3, BUN 55, creatinine 2.4, albumin 3.2. IMPRESSION: 1. Bilateral cellulitis, lower extremities. 2. Venous insufficiency with mild edema. 3. Acute chronic obstructive pulmonary disease with exacerbation. 4. Generalized debility. 5. Protein-calorie malnutrition -- mild with albumin of 3.2. PLAN: We will start triamcinolone to bilateral lower extremities with Tubigrip from toes to knee. We will have elevate her legs as much as possible. The patient will continue on IV antibiotics. Make sure we maximize the patient's oral protein supplementation for healing. We will utilize physical and occupational therapy for strengthening. We will continue all other current medications at this time. I appreciate ability to consult. <ELECTRONICALLY SIGNED> By: Romie Bassett MD 07/31/20 [id number] Romie Bassett MD /nt
== END 2020-07-30 14:45 | DRG 811 ==
LOC: ER 12:39 → EROBS 15:38 → 2N 15:38
PROVIDERS: Nurse Practitioner; ADMIT Family Medicine; ATTEND Family Medicine
PROC: 30233N1 Transfusion of Nonautologous Red Blood Cells into Peripheral Vein, Percutaneous Approach (ICD-10-PCS; principal; 2020-07-30)
DX: D50.9 Iron deficiency anemia, unspecified (principal); J96.21 Acute and chronic respiratory failure with hypoxia; J18.9 Pneumonia, unspecified organism; J96.22 Acute and chronic respiratory failure with hypercapnia; I50.33 Acute on chronic diastolic (congestive) heart failure; L03.116 Cellulitis of left lower limb; L03.115 Cellulitis of right lower limb; J44.1 Chronic obstructive pulmonary disease with (acute) exacerbation; I11.0 Hypertensive heart disease with heart failure; F41.1 Generalized anxiety disorder; E78.5 Hyperlipidemia, unspecified; G40.909 Epilepsy, unspecified, not intractable, without status epilepticus; I87.2 Venous insufficiency (chronic) (peripheral); F32.9 Major depressive disorder, single episode, unspecified; F12.90 Cannabis use, unspecified, uncomplicated; I34.0 Nonrheumatic mitral (valve) insufficiency; Z87.891 Personal history of nicotine dependence; Z85.118 Personal history of other malignant neoplasm of bronchus and lung; Z88.0 Allergy status to penicillin; Z79.82 Long term (current) use of aspirin; Z79.899 Other long term (current) drug therapy
CPT/HCPCS: 10081